=== PATIENT | female | born 1955 | race Caucasian/White ===

== ENCOUNTER → 2021-11-28 10:36 | Outpatient (CLI) | payer MEDICARE, SELFPAY ==
[2021-11-28 12:54] LABS: Anion Gap 9.9 mEq/L (5-15); Blood Urea Nitrogen 18 mg/dl (7-17); Calcium 9.2 mg/dl (8.4-10.2); Carbon Dioxide 26 mmol/L (22.0-30.0); Chloride 106 mmol/L (98-107); Estimated Glomerular Filt Rate 84 ml/min (>60); GFR (African American) 101 ML/MIN (>60); Glucose 88 mg/dl (74-100); Potassium 3.9 mmoL/L (3.5-5.1); Sodium 138 mmol/L (136-145)
[2021-11-28 13:04] LABS: NT Pro Brain Natriuretic Pep. 245 pg/mL (0-125)
== END ==
PROVIDERS: PCP Pediatrics; Visit Provider Internal Medicine Cardiovascular Disease
DX: I10 Essential (primary) hypertension (principal); R06.83 Snoring; R20.0 Anesthesia of skin; R20.2 Paresthesia of skin; R40.0 Somnolence; R55 Syncope and collapse; R63.5 Abnormal weight gain; R94.31 Abnormal electrocardiogram [ECG] [EKG]; R06.09 Other forms of dyspnea
CPT/HCPCS: 36415; 80048; 83880

== ENCOUNTER → 2021-12-05 08:14 | Outpatient (CLI) | payer SELFPAY ==
--- NOTE | 2021-12-05 08:15 | CT_ITS ---
FINAL REPORT CLINICAL HISTORY: eval for cad. family hx heart disease, arm numbness FINDINGS: CT CORONARY CALCIUM SCORE W/O TECHNIQUE: Thin-section axial images were obtained through the heart and coronary arteries per CT coronary calcium score protocol. This study was performed with techniques to keep radiation doses as low as reasonably achievable (ALARA). Individualized dose reduction techniques using automated exposure control or adjustment of mA and/or kV according to the patient's size were employed. FINDINGS: On the axial images, there is calcification within the right and left coronary arteries. This gives a coronary artery calcium score of 390.01 based on the Agatston scale. This coronary artery calcium score places the patient within the 85th percentile based on age and gender. The heart size is normal. There is no pleural or pericardial effusion. Limited evaluation of the lungs reveal a 7 mm nodule in the right middle lobe. There is an 8 mm nodule in the medial right lower lobe. There is mild scarring. IMPRESSION: Calcium score of 390.01 placing the patient in the 85th percentile. Right lung nodules as described. Recommend follow-up chest CT in 3 months. Reviewed, Interpreted and Dictated by Fidel Doty III, MD Transcribed by Barrett Welch Authenticated and [facility]
== END ==
PROVIDERS: PCP Pediatrics; Visit Provider Internal Medicine Cardiovascular Disease
DX: R55 Syncope and collapse (principal); R94.31 Abnormal electrocardiogram [ECG] [EKG]; I10 Essential (primary) hypertension; R20.0 Anesthesia of skin; R20.2 Paresthesia of skin; R06.83 Snoring; R40.0 Somnolence; R63.5 Abnormal weight gain
CPT/HCPCS: 75571

== ENCOUNTER → 2021-12-05 08:35 | Outpatient (CLI) | payer MEDICARE, SELFPAY ==
--- NOTE | 2021-12-05 08:36 | CA_ITS ---
FINAL REPORT TECHNIQUE: Color Doppler, duplex Doppler and muñoz scale sonography of the bilateral neck arterial vasculature was performed. Velocities were measured in the carotid arteries. Stenosis evaluation based on the validated velocity criteria. CLINICAL HISTORY: BRUIT,HTN,HLD FINDINGS: The peak systolic velocity of the right common carotid artery is 66 cm/s. The peak systolic velocity of the right internal carotid artery is 198 cm/s and end diastolic velocity 48 cm/s. The ICA/CCA ratio is 3.25. A small amount of plaque is present. The right external carotid artery is patent. The right vertebral artery is patent with antegrade flow. The peak systolic velocity of the left common carotid artery is 138 cm/s. The peak systolic velocity of the left internal carotid artery is 89 cm/s and end diastolic velocity 31 cm/s. The ICA/CCA ratio is 1.2. A small amount of plaque is present. The left external carotid artery is patent.The left vertebral artery is patent with antegrade flow. IMPRESSION: Based on velocities there is 50-69% right carotid stenosis. CTA or MRA could further evaluate. Less than 50% left carotid stenosis. Bilateral patent vertebral arteries with antegrade flow. Reviewed, Interpreted and Dictated by Fidel Doty III, MD Transcribed by Barrett Welch Authenticated and [facility]
== END ==
PROVIDERS: PCP Pediatrics; Visit Provider Internal Medicine Cardiovascular Disease
DX: I10 Essential (primary) hypertension (principal); R06.83 Snoring; R09.89 Other specified symptoms and signs involving the circulatory and respiratory systems; R20.0 Anesthesia of skin; R20.2 Paresthesia of skin; R40.0 Somnolence; R55 Syncope and collapse; R63.5 Abnormal weight gain; R94.31 Abnormal electrocardiogram [ECG] [EKG]
CPT/HCPCS: 93880

== ENCOUNTER → 2021-12-15 10:39 | Outpatient (CLI) | payer MEDICARE, SELFPAY | PROVIDERS: PCP Pediatrics; Visit Provider Internal Medicine Cardiovascular Disease | DX: G47.33 Obstructive sleep apnea (adult) (pediatric) (principal); R06.83 Snoring; G47.10 Hypersomnia, unspecified | CPT/HCPCS: G0399 ==

== ENCOUNTER → 2022-01-02 11:20 | Outpatient (CLI) | payer MEDICARE, SELFPAY ==
[2022-01-02 12:47] LABS: Basophils # 0.2 K/mm3 (0-0.2); Basophils % 1.3 % (0.1-2.0); Eosinophils % 0.1 % (0.1-12.0); Hematocrit 44.8 % (37.0-47.0); Hemoglobin 14.2 g/dL (12.2-16.2); Lymphocytes % 8.6 % (10-50); Mean Corpuscular HGB Conc 31.7 g/dL (31.8-35.4); Mean Corpuscular Volume 97.8 fl (81-99); Mean Platelet Volume 13.2 fl (7.4-10.4); Monocytes # 0.3 K/mm3 (0.1-1.0); Monocytes % 2.9 % (1.7-9.3); Neutrophils # 10.1 K/mm3 (1.8-7.8); Neutrophils % 87.1 % (37.0-80.0); Platelet Count 323 K/mm3 (142-424); Red Blood Count 4.58 M/mm3 (4.20-5.40); White Blood Count 11.5 K/mm3 (4.8-10.8)
[2022-01-02 12:52] LABS: MANUAL DIFFERENTIAL MANUAL DIFFERENTIAL (MANUAL DIFF)
[2022-01-02 13:26] LABS: Anion Gap 15.7 mEq/L (5-15); Blood Urea Nitrogen 20 mg/dl (7-17); Calcium 9.4 mg/dl (8.4-10.2); Carbon Dioxide 28 mmol/L (22.0-30.0); Chloride 101 mmol/L (98-107); Estimated Glomerular Filt Rate 84 ml/min (>60); GFR (African American) 101 ML/MIN (>60); Glucose 94 mg/dl (74-100); Potassium 4.7 mmoL/L (3.5-5.1); Sodium 140 mmol/L (136-145)
[2022-01-02 13:58] LABS: Lymphocytes % 10 % (10-50); Monocytes % 4 % (2-9); Neutrophils % 85 % (42-76); Platelet Estimate Normal; RBC Morphology Normal; Total Cells Counted 100
== END ==
PROVIDERS: PCP Pediatrics; Visit Provider Internal Medicine Cardiovascular Disease
DX: I10 Essential (primary) hypertension (principal); R06.00 Dyspnea, unspecified; R09.89 Other specified symptoms and signs involving the circulatory and respiratory systems; R55 Syncope and collapse; R94.31 Abnormal electrocardiogram [ECG] [EKG]
CPT/HCPCS: 36415; 80048; 85007; 85025; 93225

== ENCOUNTER 2022-01-09 08:39 | Day surgery (SDC) | payer MEDICARE, MEDICAID, SELFPAY ==
[2022-01-09] VITALS (13 sets, daily range): BP systolic 127–164; BP diastolic 69–83; PULSE 51–63; RESP 16–20; O2SAT 93–100; BMI 29.1
--- NOTE | 2022-01-09 | IR_ITS ---
APPROVED REPORT Patient Location: Outpatient PROCEDURES Left heart catheterization Left ventriculogram Selective coronary angiogram INDICATION High calcium score, Syncope, Informed consent was obtained prior to the procedure. COMPLICATIONS None Estimated Blood Loss: Less than 10 mls TECHNIQUE One percent lidocaine used to anesthetize the right anterior aspect of the wrist. The right radial artery was accessed via the Seldinger technique. A 6 Lebanese sheath was placed in the right radial artery. 2.5 mg of verapamil, 800 mcg of nitroglycerin, 1mg Lidocaine and 5000 U Heparin were given through the arterial sheath. The papa catheter was also used to perform left heart catheterization, left ventriculogram and selective coronary angiogram. At the end of the procedure the sheath was removed good hemostasis was achieved using Traclet band, patient was transferred to the postop holding area in stable condition. ANGIOGRAPHIC RESULTS The left main artery Normal The left anterior descending artery Has proximal mid vessel mild 10% luminal irregularities The circumflex artery Codominant with mild mid vessel 10% luminal regularities The right coronary artery Codominant with mild proximal and 10 to 20% stenoses in a mid vessel 30 to 40% stenosis The MOYER ventriculogram reveals Normal 65% The left ventricular end-diastolic pressure 15 mmHg IMPRESSION Mild to moderate nonflow limiting coronary disease involving the proximal and mid vessel codominant right coronary Normal ejection fraction Borderline LVEDP PLAN 1. Recommend loop recorder given conduction abnormality on EKG 2. Medical management 3. LDL less than 55 to be achieved with high intensity statin Electronically signed by : Tiago Borrego MD 01/09/2022 13:13:04
== END 2022-01-09 13:34 | disposition home or self-care (01) ==
PROVIDERS: PCP Pediatrics; Visit Provider Internal Medicine
DX: R94.39 Abnormal result of other cardiovascular function study (principal); I25.10 Atherosclerotic heart disease of native coronary artery without angina pectoris; R55 Syncope and collapse; R94.31 Abnormal electrocardiogram [ECG] [EKG]; I10 Essential (primary) hypertension
CPT/HCPCS: 93458; 99152; C1725; C1769; J1644; Q9967

== ENCOUNTER 2022-01-14 07:27 | Day surgery (SDC) | payer MEDICARE, MEDICAID, SELFPAY ==
[2022-01-14 07:33] VITALS: BMI 29.1
[2022-01-14 08:01] VITALS: BP 167/88; PULSE 70; PULSE 74; RESP 16; O2SAT 97
[2022-01-14 08:38] VITALS: BP 156/83; PULSE 67; RESP 18; O2SAT 99
[2022-01-14 08:46] VITALS: BP 167/73; PULSE 66; RESP 18; O2SAT 95
--- NOTE | 2022-01-14 09:36 | P.PCN_ITS ---
[facility] Loop Recorder Date: 01/14/22 Time: 08:30 Procedure Performed:: Implantation of loop recorder Indication:: History of syncope Technique:: Patient was brought to the cardiac Organ Fixer.? After informed consent obtained, 1% lidocaine with epinephrine was used to anesthetize the site along the left anterior aspect of the chest near the sternal border.? Using the preformed scalpel, an incision was made and using the supplied preloaded apparatus, the loop recorder was placed subcutaneously without difficulty.? Following the deployment of the loop recorder interrogation of the device was performed to ensure appropriate voltage was being detected.? Once this was verified, Steri- Strips were placed over the incision and the patient was prepped to discharge home.? Patient tolerated the procedure well with minimal discomfort. Impression:: Successful implantation of loop recorder Serial Number:: [employer] M301 Lux-Dx model Serial #[id number] Plan:: Successful implantation of loop recorder. Routine postop care.
== END 2022-01-14 08:51 | disposition home or self-care (01) ==
LOC: CATHLAB 07:31
PROVIDERS: PCP Pediatrics; Visit Provider Internal Medicine
DX: R55 Syncope and collapse (principal); I25.10 Atherosclerotic heart disease of native coronary artery without angina pectoris; R94.31 Abnormal electrocardiogram [ECG] [EKG]; R94.39 Abnormal result of other cardiovascular function study; I10 Essential (primary) hypertension
CPT/HCPCS: 33285

== ENCOUNTER 2022-03-17 12:08 | Emergency (ER) | payer MEDICARE, MEDICAID, SELFPAY ==
[2022-03-17] VITALS (7 sets, daily range): BP systolic 131–180; BP diastolic 68–84; PULSE 61–71; RESP 14–21; TEMP 36.8; O2SAT 96–99; BMI 28.1
--- NOTE | 2022-03-17 12:22 | ECG_ITS ---
APPROVED REPORT Exam: Resting ECG HR:60 bpm ECG Measurements Heart Rate 60 AXES FL 174 P 74 QRSd 133 QRS 70 QT 431 T 81 QTc 431 Conclusion SINUS RHYTHM LEFT BUNDLE BRANCH BLOCK [120+ ms QRS DURATION, 80+ ms Q/S IN V1/V2, 85+ ms R IN I/aVL/V5/V6] ABNORMAL ECG UNCONFIRMED REPORT Electronically signed by : Ciaran Sanchez MD 03/17/2022 20:08:54
[2022-03-17 12:24] LABS: POC Glucose,Bedside 98 (70-110)
--- NOTE | 2022-03-17 12:27 | HMH.EDGENADL ---
Discharge Plan Disposition Patient Disposition: Home, Self-Care Condition: Good Chief Complaint: Extremity Problem,Nontraumatic Prescriptions Prescriptions: No Action atorvastatin 40 mg tablet 40 mg PO HS levothyroxine 75 mcg tablet 75 mcg PO DAILY Label Comments: TAKE 1 TABLET BY MOUTH DAILY. metoprolol succinate 25 mg tablet extended release 24 hr 25 mg PO DAILY Label Comments: TAKE 1 TABLET BY MOUTH ONCE DAILY. aspirin 81 mg capsule 81 mg PO DAILY losartan 100 mg tablet 100 mg PO DAILY Qty: 90 3RF cholecalciferol (vitamin D3) 25 mcg (1,000 unit) capsule 25 mcg PO DAILY fluoxetine 20 mg capsule 20 mg PO DAILY Label Comments: TAKE 1 CAPSULE BY MOUTH DAILY. Referrals Follow up/Referrals: Diego Gutierrez [Primary Care Provider] - See instructions Activity Restrictions/Add. Instructions Additional Instructions/Restrictions: Follow-up with primary care provider for further care. Clinical Impressions Clinical Impression: Arm paresthesia, right Instructions Patient Instructions: DI for Numbness/Tingling Discharge ED Provider: Timothy Joy General Adult HPI General Chief complaint: Extremity Problem,Nontraumatic Stated complaint: RT arm numbness/tingle physican referral Time Seen by Provider: 03/17/22 13:01 History of Present Illness HPI narrative: Patient complains of intermittent episodes of right arm tingling. States that she had 3 episodes this morning, each lasting less than 5 minutes. They all occurred within about a 1 to 2-hour span. She had 1 episode of vomiting. No chest pain, shortness of breath, headache, visual disturbance, difficulty speaking, or weakness of her arm. No other neurologic symptoms. Currently asymptomatic. She called Dr. Arias, her law office receptionist, and was advised to come to the emergency department. She has had these episodes for over a year. She gets them at least once a week. She always gets tingling from the right side of her neck all the way down her right arm. Sometimes she will get a headache, sometimes she will vomit. She never gets any other associated symptoms. Symptoms always last about 5 minutes and then resolve. No exacerbating or alleviating factors. She says she can always go back to doing what she was doing before the episode started. The most she has ever had and 1 day was 5. She says she has been admitted to [facility] twice because of these episodes with negative work-up. She does not remember all of the tests that she has had. She has had a heart cath done here. She has also seen her primary care provider because of the symptoms, but says she has not had any other work-up done by him. Because she had 3 episodes in 1 day, which is unusual, she called Dr. Arias today. Related Data Home Medications Medication Instructions Recorded Confirmed aspirin 81 mg capsule 81 mg PO DAILY 11/28/21 01/22/22 atorvastatin 40 mg tablet 40 mg PO HS 11/28/21 01/22/22 levothyroxine 75 mcg tablet 75 mcg PO DAILY 11/28/21 01/22/22 metoprolol succinate 25 mg 25 mg PO DAILY 11/28/21 01/22/22 tablet,extended release 24 hr cholecalciferol (vitamin D3) 25 25 mcg PO DAILY 12/25/21 01/22/22 mcg (1,000 unit) capsule fluoxetine 20 mg capsule 20 mg PO DAILY 01/22/22 01/22/22 Previous Rx's Medication Instructions Recorded losartan 100 mg tablet 100 mg PO DAILY #90 tabs 11/28/21 Allergies Allergy/AdvReac Type Severity Reaction Status Date / Time No Known Allergies Allergy Verified 01/22/22 09:37 [facility] Disclaimer: The information contained in this section may have been updated after the patient was seen, as this information can be updated by other users. Medical History (Updated 03/17/22 @ 15:25 by Timothy Joy MD) Abnormal electrocardiogram [ECG] [EKG] Coronary artery disease HTN (hypertension) Hyperthyroidism LBBB (left bundle branch block) Right arm numbness S
--- NOTE | 2022-03-17 13:01 | PC.NURSE ---
DR. MCGREGOR AT BEDSIDE
--- NOTE | 2022-03-17 13:17 | CT_ITS ---
FINAL REPORT TECHNIQUE: Thin section axial CT with IV contrast supplemented with multiplanar reconstruction under CT angiogram protocol. This study was performed with techniques to keep radiation doses as low as reasonably achievable (ALARA). Individualized dose reduction techniques using automated exposure control or adjustment of mA and/or kV according to the patient''s size were employed. NASCET criteria was utilized during interpretation. CLINICAL HISTORY: episodic R arm numbness FINDINGS: Aortic arch: Arch shows no significant narrowing. Great vessel origins are widely patent. Right carotid: No significant stenosis is seen of the cervical common or internal carotid artery. Left carotid: No significant stenosis is seen of the cervical common or internal carotid artery. Vertebral: Left vertebral artery is dominant. No significant stenosis is present. There is mild scarring in the lung apices. IMPRESSION: No significant stenosis. Reviewed, Interpreted and Dictated by Fidel Doty III, MD Transcribed by Barrett Welch Authenticated and [facility]
--- NOTE | 2022-03-17 13:17 | CT_ITS ---
FINAL REPORT CLINICAL HISTORY: episodic R arm numbness FINDINGS: Axial images of the head were obtained without contrast. Coronal reformatted images were also obtained.This study was performed with techniques to keep radiation doses as low as reasonably achievable (ALARA). Individualized dose reduction techniques using automated exposure control or adjustment of mA and/or kV according to the patient's size were employed. There is no evidence of intracranial hemorrhage or mass. The ventricular size is within normal limits. There is no evidence of shift of the midline structures. No abnormal extra axial fluid collection is identified. No skull abnormality is seen on the bone window images. IMPRESSION: No acute intracranial abnormality. Reviewed, Interpreted and Dictated by Fidel Doty III, MD Transcribed by Barrett Welch Authenticated and [facility]
--- NOTE | 2022-03-17 13:17 | CT_ITS ---
FINAL REPORT TECHNIQUE: Thin section axial CT with IV contrast supplemented with multiplanar reconstruction under CT angiogram protocol. 3-D reconstructions were performed. This study was performed with techniques to keep radiation doses as low as reasonably achievable (ALARA). Individualized dose reduction techniques using automated exposure control or adjustment of mA and/or kV according to the patient''s size were employed. CLINICAL HISTORY: episodic R arm numbness FINDINGS: The distal vertebral, basilar and distal internal carotid arteries have an unremarkable appearance. No aneurysm is seen. Major intracranial vessels are patent without significant stenosis. IMPRESSION: No aneurysm or significant stenosis. Reviewed, Interpreted and Dictated by Fidel Doty III, MD Transcribed by Barrett Welch Authenticated and [facility]
[2022-03-17 13:22] LABS: Basophils # 0.1 K/mm3 (0-0.2); Basophils % 0.8 % (0.1-2.0); Eosinophils # 0.2 K/mm3 (0.0-0.4); Eosinophils % 2.8 % (0.1-12.0); Hematocrit 43.8 % (37.0-47.0); Hemoglobin 14.3 g/dL (12.2-16.2); Lymphocytes # 1.9 K/mm3 (0.7-4.5); Lymphocytes % 28.1 % (10-50); Mean Corpuscular HGB Conc 32.7 g/dL (31.8-35.4); Mean Corpuscular Hemoglobin 32.1 pg (27.0-31.2); Mean Corpuscular Volume 98.2 fl (81-99); Mean Platelet Volume 8.8 fl (7.4-10.4); Monocytes # 0.3 K/mm3 (0.1-1.0); Monocytes % 3.8 % (1.7-9.3); Neutrophils # 4.3 K/mm3 (1.8-7.8); Neutrophils % 64.5 % (37.0-80.0); Platelet Count 282 K/mm3 (142-424); Red Blood Count 4.46 M/mm3 (4.20-5.40); Red Cell Distribution Width 13.1 % (11.5-17.5); White Blood Count 6.6 K/mm3 (4.8-10.8)
[2022-03-17 13:23] LABS: Chloride 104 mmol/L (98-107); Sodium 140 mmol/L (136-145)
[2022-03-17 13:26] LABS: Blood Urea Nitrogen 12 mg/dl (7-17); Creatinine Clearance Estimated 71 mL/min (50-200); Estimated Glomerular Filt Rate 72 ml/min (>60); GFR (African American) 87 ML/MIN (>60)
[2022-03-17 13:27] LABS: Calcium 10.6 mg/dl (8.4-10.2); Carbon Dioxide 28 mmol/L (22.0-30.0); Glucose 105 mg/dl (74-100)
[2022-03-17 13:40] LABS: Troponin I < 0.01 ng/ml (0.00-0.034)
--- NOTE | 2022-03-17 14:22 | XR_ITS ---
FINAL REPORT CLINICAL HISTORY: R arm numbness FINDINGS: SINGLE-VIEW CHEST The heart size is normal. The mediastinum is normal. The lungs are clear. There is no pneumothorax. IMPRESSION: No acute cardiopulmonary process. Reviewed, Interpreted and Dictated by Fidel Doty III, MD Transcribed by Rosanna Simpson Authenticated and [facility]
--- NOTE | 2022-03-17 14:27 | PC.NURSE ---
Cardiology consult has been called for patient
--- NOTE | 2022-03-17 14:35 | PC.NURSE ---
rounded on patient.
--- NOTE | 2022-03-17 14:45 | PC.NURSE ---
sunni fountainn at BS
--- NOTE | 2022-03-17 14:57 | EXP.CARD.CON ---
History of Present Illness History of Present Illness Consult date: 03/17/22 Requesting physician: Tmiothy Joy Chief complaint: right arm numbness History of present illness: This is a 66-year-old white female who presented to the emergency department with complaints of right arm numbness. The patient states that she has been having the right arm numbness for approximately a year or 2. She states that she has been seen at [facility] multiple times for the right arm numbness and had multiple cardiac work-ups with no known cause of the right arm numbness. She states that the right arm numbness happened 3 times today and she called Dr. Arias's office and they recommended she go to the emergency department. The patient states that the right arm numbness is intermittent. It occurs about once a week. She states today that it occurred 3 times which is unusual for her. It is associated with nausea. She states sometimes it is associated with a headache but not today. The patient symptoms resolved prior to her coming to the emergency department. She denies any chest pain or pressure. She denies any shortness of breath or edema. She denies any fever, chills, vomiting, diarrhea, PND or orthopnea. She states that when the numbness starts it first starts in her neck and then radiates all the way down to her fingertips on the right side. The patient has had a cardiac work-up here and underwent left cardiac catheterization approximately 3 months ago which showed some mild to moderate nonocclusive coronary disease. She does have a loop recorder in place as well which is shown note for events. [facility] Disclaimer: The information contained in this section may have been updated after the patient was seen, as this information can be updated by other users. Medical History (Updated 03/17/22 @ 15:03 by Luci Rosas APRN) Abnormal electrocardiogram [ECG] [EKG] Coronary artery disease HTN (hypertension) Hyperthyroidism LBBB (left bundle branch block) Right arm numbness Stenosis of carotid artery Surgical History (Updated 01/22/22 @ 10:05 by Marion Parsons RN) History of appendectomy History of cholecystectomy History of loop recorder Family History Father Coronary artery disease Heart attack Brother Cancer Mother Stroke Social History (Reviewed 01/22/22 @ 09:37 by Christine Smith Smoking Status: Never smoker alcohol intake: never substance use type: marijuana current occupational status: retired Travel in the last 8 weeks: None household members: other housing: apartment marital status: Review of Systems Review of Systems Review of systems:: pertinent systems reviewed and negative unless documented below Constitutional Constitutional: Reports system reviewed and no additional complaints, except as documented, Reports headache(s) and Denies weakness Eyes Eyes: Reports system reviewed and no additional complaints, except as documented ENT Ears, Nose, Mouth, and Throat: Reports system reviewed and no additional complaints, except as documented and Reports headache(s) *Cardiovascular Cardiovascular: Reports system reviewed and no additional complaints, except as documented *Respiratory Respiratory: Reports system reviewed and no additional complaints, except as documented *Gastrointestinal Gastrointestinal: Reports system reviewed and no additional complaints, except as documented and Reports nausea *Genitourinary Genitourinary: Reports system reviewed and no additional complaints, except as documented *Musculoskeletal Musculoskeletal: Reports system reviewed and no additional complaints, except as documented, Reports numbness (Right upper extremity) and Reports tingling Integumentary/Breasts Skin/Breast: Reports system reviewed and no additional complaints, except as documented *Neurologic Neurologic: Reports system reviewed and no add
== END 2022-03-17 15:40 | disposition home or self-care (01) ==
PROVIDERS: Emergency Provider Emergency Medicine; PCP Pediatrics
DX: R55 Syncope and collapse (principal); R20.2 Paresthesia of skin; R94.31 Abnormal electrocardiogram [ECG] [EKG]; R11.2 Nausea with vomiting, unspecified; R51.9 Headache, unspecified; I10 Essential (primary) hypertension; I25.10 Atherosclerotic heart disease of native coronary artery without angina pectoris; I65.29 Occlusion and stenosis of unspecified carotid artery; I44.7 Left bundle-branch block, unspecified; Z98.890 Other specified postprocedural states; Z82.49 Family history of ischemic heart disease and other diseases of the circulatory system; Z80.9 Family history of malignant neoplasm, unspecified
CPT/HCPCS: 70450; 70496; 70498; 71045; 80048; 82962; 84484; 85025; 93005; 99285; Q9967

== ENCOUNTER → 2022-03-25 14:25 | Outpatient (CLI) | payer MEDICARE, MEDICAID, SELFPAY ==
--- NOTE | 2022-03-25 14:25 | MR_ITS ---
FINAL REPORT TECHNIQUE: Multiplanar MR without gadolinium enhancement CLINICAL HISTORY: right arm pain and numbness FINDINGS: Limited images of the posterior fossa are unremarkable. Alignment is normal. Cervical spinal cord shows normal signal and contour. C2-3: Unremarkable. C3-4: A minimal annular disc bulge is present. C4-5: A mild annular disc bulge is present. C5-6: A moderate annular disc bulge is present with mild facet arthropathy and borderline central canal stenosis. C6-7: A moderate annular disc bulge is present with mild facet arthropathy and borderline central canal stenosis. C7-T1: Unremarkable. IMPRESSION: Moderate degenerative disc disease with associated spondylosis at C5-6 and C6-7. Reviewed, Interpreted and Dictated by Jordan Maynard MD Transcribed by Liat Sims Authenticated and [facility]
--- NOTE | 2022-03-25 14:25 | MR_ITS ---
FINAL REPORT TECHNIQUE: Multiplanar MR without gadolinium enhancement CLINICAL HISTORY: right arm pain FINDINGS: There is motion artifact which decreases sensitivity of the exam. Limited images of the cervical cord show no cord abnormality. There is moderate lower cervical degenerative disc disease. No mass or fluid collection is seen along the course of the right brachial plexus. Right thoracic inlet region is unremarkable. There is no obvious abnormal signal change within the right neck and axilla. IMPRESSION: No obvious mass along the course of the right brachial plexus. Moderate lower cervical degenerative changes. Reviewed, Interpreted and Dictated by Jordan Maynard MD Transcribed by Liat Sims Authenticated and [facility]
== END ==
PROVIDERS: PCP Pediatrics; Visit Provider Internal Medicine
DX: R20.0 Anesthesia of skin (principal); R20.2 Paresthesia of skin; M54.2 Cervicalgia; M54.50 Low back pain, unspecified
CPT/HCPCS: 72141; 73218; 76376

== ENCOUNTER → 2022-04-08 09:38 | Outpatient (CLI) | payer MEDICARE, MEDICAID, SELFPAY | PROVIDERS: PCP Pediatrics; Visit Provider Nurse Practitioner Family | DX: G93.40 Encephalopathy, unspecified (principal); G47.33 Obstructive sleep apnea (adult) (pediatric); F14.91 Cocaine use, unspecified, in remission; F12.90 Cannabis use, unspecified, uncomplicated; R41.3 Other amnesia; R20.0 Anesthesia of skin; R20.2 Paresthesia of skin | CPT/HCPCS: 95816; 95819 ==

== ENCOUNTER → 2022-04-10 11:04 | Outpatient (CLI) | payer MEDICARE, MEDICAID, SELFPAY ==
[2022-04-10 12:35] LABS: C-Reactive Protein 0.7 mg/L (0-4)
[2022-04-10 12:48] LABS: Thyroid Stimulating Hormone 1.39 uIU/mL (0.465-4.68)
[2022-04-10 13:24] LABS: Vitamin B12 340 pg/mL (239-931)
[2022-04-10 13:25] LABS: Erythrocyte Sedimentation Rate 74 mm/hr (0-30)
[2022-04-10 13:27] LABS: Folate 5.19 ng/mL
[2022-04-11 17:03] LABS: Rapid Plasma Reagin Ab Titer Non Reactive (NonRea<1:1)
[2022-04-16 03:00] LABS: Antinuclear Antibodies (ANA) NEGATIVE
== END ==
PROVIDERS: PCP Pediatrics; Visit Provider Nurse Practitioner Family
DX: F12.90 Cannabis use, unspecified, uncomplicated (principal); F14.91 Cocaine use, unspecified, in remission; G47.33 Obstructive sleep apnea (adult) (pediatric); G93.40 Encephalopathy, unspecified; R20.0 Anesthesia of skin; R20.2 Paresthesia of skin; R41.3 Other amnesia; I10 Essential (primary) hypertension
CPT/HCPCS: 36415; 82607; 82746; 84443; 85651; 86038; 86140; 86225; 86235; 86593

== ENCOUNTER → 2022-04-11 07:58 | Outpatient (CLI) | payer MEDICARE, MEDICAID, SELFPAY ==
--- NOTE | 2022-04-11 07:58 | MR_ITS ---
PROCEDURE INFORMATION: Exam: MR Head Without and With Contrast Exam date and time: 04/11/2022 8:04 AM Age: 66 years old Clinical indication: Pain; Other: Encephalopathy TECHNIQUE: Imaging protocol: Magnetic resonance imaging of the head without and with contrast. Contrast material: PROHANCE; Contrast volume: 16 ml; Contrast route: IV; COMPARISON: CT HEAD/BRAIN WO CON 03/17/2022 1:41 PM FINDINGS: Brain: No acute intraparenchymal hemorrhage, territorial infarct or mass lesion. There are scattered T2 hyperintensities in the periventricular and subcortical white matter. The appearance is nonspecific, but most likely represents chronic small vessel disease in a person of this age. No abnormal parenchymal or meningeal enhancement. Cerebral ventricles: The ventricles, sulci and cisterns are normal in size and configuration. No hydrocephalus or midline structure shift Pituitary gland and sella: Orbits, sellar/parasellar structures and cervicomedullary junction are unremarkable. Bones/joints: Unremarkable. Paranasal sinuses: Normal as visualized. No acute sinusitis. Mastoid air cells: Normal as visualized. No mastoid effusion. Orbital cavities: Unremarkable. Vasculature: Flow voids of the major vascular structures are intact. Soft tissues: Unremarkable. IMPRESSION: No acute intraparenchymal hemorrhage, territorial infarct or mass lesion
== END ==
PROVIDERS: PCP Pediatrics; Visit Provider Nurse Practitioner Family
DX: F14.91 Cocaine use, unspecified, in remission (principal); G47.33 Obstructive sleep apnea (adult) (pediatric); G93.40 Encephalopathy, unspecified; R20.0 Anesthesia of skin; R20.2 Paresthesia of skin; R41.3 Other amnesia
CPT/HCPCS: 70553; A9576

== ENCOUNTER → 2022-08-06 08:05 | Outpatient (CLI) | payer MEDICARE, MEDICAID, SELFPAY ==
--- NOTE | 2022-08-06 08:11 | XR_ITS ---
FINAL REPORT CLINICAL HISTORY: left knee pain COMPARISON: none FINDINGS: Three views of the left knee reveal no evidence of fracture or dislocation. [id number] degenerative change. There is moderate lateral compartment joint space narrowing. There is mild lateral subluxation of the tibia in relation to the distal femur. A small joint effusion is present. No localized soft tissue abnormality is seen. IMPRESSION: Moderate degenerative change with moderate lateral compartment joint space narrowing. Small joint effusion. Reviewed, Interpreted and Dictated by Fidel Doty III, MD Transcribed by Kelly Bolivar Authenticated and [facility]
== END ==
PROVIDERS: PCP Pediatrics; Visit Provider Orthopaedic Surgery
DX: M25.562 Pain in left knee (principal)
CPT/HCPCS: 73562

== ENCOUNTER → 2022-08-27 12:54 | Outpatient (POV) | payer MEDICARE, MEDICAID, SELFPAY ==
--- NOTE | 2022-08-27 13:09 | EXP.PAIN.OV ---
HPI Data of Consult Patient: new to practice Consult date: 08/27/22 Requesting Physician: Brenda Isidro APRN Consult Narrative Reason for consult: Left knee pain History of present illness: Ms. Keys is a 66 year old female who presents today as a new patient. She is a referral from [facility]. Today she rates her pain an 8 out of 10. Patient states her pain is in left knee and describes it as 0333 sharp achy sensation that is worse with increased activity. She does state that she believes it is related to a fall she had in her bedroom 3 to 4 years ago where she landed on both her knees. Patient states it has progressively worsened over time. She states she did go to [facility] in the past and guidance gel injections that did not provide any additional improvement as well as intra-articular injections. She states these injections initially did provide 7 to 8 months worth of relief however as time progressed the injections became less and less effective. Patient has tried [id number] medications such as ibuprofen that has provided improvement along with ice for temporary relief. Patient denies any topical use. She has had physical therapy in the past that did provide additional help. She does state that her pain is not bad while she is sitting however prolonged activity up on her feet or walking causes significant pain and disability. She states the pain does interfere with her ability to perform activities of daily living such as cooking and cleaning. She does state that the left knee is the worst knee and that she will occasionally have right knee pain however it is not as frequent. She also states she typically has edema in her left knee. Patient is not on any blood thinners. Her Adam is [id number]. Its been reviewed and appropriate. CC: Brenda Isidro APRN [facility] Disclaimer: The information contained in this section may have been updated after the patient was seen, as this information can be updated by other users. Medical History Abnormal electrocardiogram [ECG] [EKG] Coronary artery disease HTN (hypertension) Hyperthyroidism LBBB (left bundle branch block) Right arm numbness Stenosis of carotid artery Surgical History History of appendectomy History of cholecystectomy History of loop recorder syncope-implant DEC 2021 Family History Father Coronary artery disease Heart attack Brother Cancer Mother Stroke Social History Smoking Status: Never smoker alcohol intake: never substance use type: marijuana current occupational status: retired Travel in the last 8 weeks: None household members: other housing: apartment marital status: Review of Systems Review of Systems Review of systems:: pertinent systems reviewed and negative unless documented below Review of systems (narrative): Review of Systems: General: No recent weight changes, no fever, no sleep disturbances Respiratory: No cough, no shortness of air, no recurring pulmonary infections Cardiovascular/peripheral vascular: No chest pain, no palpitations, no edema, no shortness of breath Gastrointestinal: No new onset incontinence, normal bowel movements reported Genitourinary: No new onset incontinence Musculoskeletal: Left knee pain Psychiatric: [Normal mood/affect] Neurological: [Denies weakness in extremities], [denies balance issues] Meds Home Medications and Allergies Home Medications Medication Instructions Recorded Confirmed Type aspirin 81 mg capsule 81 mg PO DAILY 11/28/21 08/10/22 History atorvastatin 40 mg tablet 40 mg PO HS 11/28/21 08/10/22 History levothyroxine 75 mcg tablet 75 mcg PO DAILY 11/28/21 08/10/22 History losartan 100 mg tablet 100 mg PO DAILY #90 tabs 0
[2022-08-27 14:04] VITALS: BP 105/59; PULSE 69; RESP 18; O2SAT 97; BMI 27.1
== END ==
PROVIDERS: Visit Provider Nurse Practitioner Family
DX: M17.12 Unilateral primary osteoarthritis, left knee (principal); M25.562 Pain in left knee
CPT/HCPCS: 99202; G0463

== ENCOUNTER 2022-09-08 08:40 | Day surgery (SDC) | payer MEDICARE, MEDICAID, SELFPAY ==
[2022-09-08 08:46] VITALS: BP 152/70; PULSE 64; RESP 16; TEMP 36.4; O2SAT 97; BMI 26.6
[2022-09-08 08:57] VITALS: BP 180/68; PULSE 59; RESP 18; O2SAT 98
[2022-09-08 09:02] VITALS: BP 162/77; PULSE 61; RESP 18; O2SAT 97
--- NOTE | 2022-09-08 09:03 | EXP.PAIN.PRO ---
Procedure Date: 09/08/22 Time: 08:50 Anesthesiologist:: Tomer Dhaliwal CRNA Complications:: None Pre-procedure Diagnosis:: Osteoarthritis left knee. Chronic pain left knee. Post-procedure Diagnosis:: Same. Indications for Procedure:: Patient is a very pleasant 66-year-old female comes our clinic today for a left genicular nerve block. Patient complains of severe left knee pain transitioning from sitting to standing. Patient complains of some degree of pain with ambulation. Also, with standing for any length of time. Patient rates her pain 7/10. Procedure Details:: Left knee genicular block Informed consent was obtained and the risk and benefits of the procedure was explained to the patient. The patient was taken to the procedure room. The left knee was prepped using ChloraPrep. I placed 22-gauge needles into the area of the left superior medial genicular nerve, left superior lateral genicular nerve and left inferior medial genicular nerve. Needle placement was confirmed in AP and lateral views with dye. We then injected bupivacaine 0.25% 3 mL's and Depo-Medrol 25 mg into each area of the left superior medial genicular nerve, left superior lateral genicular nerve and left inferior medial genicular nerve. Patient tolerated the procedure well with no complications. Plan and Disposition:: We will follow-up with her in 2 weeks. Will reevaluate symptoms at that time. Plan and Disposition:: Patient was discharged without incident.
== END 2022-09-08 09:02 | disposition home or self-care (01) ==
PROVIDERS: PCP Nurse Practitioner Family; Visit Provider Nurse Anesthetist, Certified Registered
DX: M17.12 Unilateral primary osteoarthritis, left knee (principal); M25.562 Pain in left knee; G89.29 Other chronic pain
CPT/HCPCS: 64454; J1040

== ENCOUNTER → 2022-09-28 10:33 | Outpatient (POV) | payer MEDICARE, MEDICAID, SELFPAY ==
--- NOTE | 2022-09-28 10:39 | A.OFFVIS_ITS ---
[facility] Pain Management SOAP Note Subjective:: Patient is a pleasant 66-year-old female who presents today for follow-up of left genicular nerve block on 09/08/2022. We are currently treating the patient for left knee pain. Today she rates her pain a 0 out of 10. She states she has had 100% improvement following this injection and feels like it is still continuing to provide additional relief. Patient states she has been able to move around easier with decreased pain symptoms and feels like she has more functionality. She states she was able to walk the [email or web address] recently and is very pleased with her response to the injection. Patient is not on any scheduled medications. Her Adam is [id number]. Its been reviewed and appropriate. Review of Systems: General: No recent weight changes, no fever, no sleep disturbances Respiratory: No cough, no shortness of air, no recurring pulmonary infections Cardiovascular/peripheral vascular: No chest pain, no palpitations, no edema, no shortness of breath Gastrointestinal: No new onset incontinence, normal bowel movements reported Genitourinary: No new onset incontinence Musculoskeletal: Left knee pain Psychiatric: [Normal mood/affect] Neurological: [Denies weakness in extremities], [denies balance issues] Objective:: Physical Exam: General: Alert and oriented x3, no acute distress, pleasant and cooperative Lungs: Respirations even and unlabored, symmetrical chest expansion Eyes: PERRL Musculoskeletal: Flexion and extension of left knee somewhat guarded secondary to pain, [antalgic gait noted] Neurological: Speech clear, no gross sensory deficit Assessment:: Left knee pain Plan:: Patient has had 100% improvement of her left knee pain following her left genicular nerve block and does not require additional injective therapy at this time. Patient will return to clinic in 1 month for reevaluation of symptoms and plan of care. Patient has been instructed to contact the clinic with any concerns before the next appointment. Dr. Bernal has reviewed this note and agrees with this plan of care. This note was dictated using voice recognition software and make contain errors or omissions. [facility] Disclaimer: The information contained in this section may have been updated after the patient was seen, as this information can be updated by other users. Medical History Abnormal electrocardiogram [ECG] [EKG] Coronary artery disease HTN (hypertension) Hyperthyroidism LBBB (left bundle branch block) Right arm numbness Stenosis of carotid artery Surgical History History of appendectomy History of cholecystectomy History of loop recorder syncope-implant DEC 2021 Family History Father Coronary artery disease Heart attack Brother Cancer Mother Stroke Social History Smoking Status: Never smoker alcohol intake: never substance use type: marijuana current occupational status: retired Travel in the last 8 weeks: None household members: other housing: apartment marital status:
[2022-09-28 10:42] VITALS: BP 133/79; PULSE 80; RESP 18; O2SAT 98; BMI 26.6
== END ==
PROVIDERS: PCP Pediatrics; Visit Provider Nurse Practitioner Family
DX: M25.562 Pain in left knee (principal)
CPT/HCPCS: 99212; G0463

== ENCOUNTER → 2022-09-30 08:20 | Outpatient (CLI) | payer MEDICARE, MEDICAID, SELFPAY ==
[2022-09-30 09:35] LABS: Erythrocyte Sedimentation Rate 24 mm/hr (0-30)
== END ==
PROVIDERS: PCP Pediatrics; Visit Provider Nurse Practitioner Family
DX: R70.0 Elevated erythrocyte sedimentation rate (principal)
CPT/HCPCS: 36415; 85651

== ENCOUNTER → 2022-11-12 13:38 | Outpatient (POV) | payer MEDICARE, MEDICAID, SELFPAY ==
--- NOTE | 2022-11-12 13:50 | EXP.PAIN.SOA ---
[facility] Pain Management SOAP Note Subjective:: Patient is a pleasant 66-year-old female who presents today for 1 month follow-up. We are currently treating the patient for left knee pain, left knee osteoarthritis. Today she rates her pain an 0 out of 10. Patient denies any new trauma or injury. She denies any change to location or type of pain she experiences. Patient previously had a genicular nerve block on 09/16/2022 that provided 100% improvement. She states today that it is continued to do extremely well and she is able to get up and down with decreased pain and feels overall more functional. Patient is not on any scheduled medications. Her Adam is appropriate Review of Systems: General: No recent weight changes, no fever, no sleep disturbances Respiratory: No cough, no shortness of air, no recurring pulmonary infections Cardiovascular/peripheral vascular: No chest pain, no palpitations, no edema, no shortness of breath Gastrointestinal: No new onset incontinence, normal bowel movements reported Genitourinary: No new onset incontinence Musculoskeletal: Left knee pain Psychiatric: [Normal mood/affect] Neurological: [Denies weakness in extremities], [denies balance issues] Objective:: Physical Exam: General: Alert and oriented x3, no acute distress, pleasant and cooperative Lungs: Respirations even and unlabored, symmetrical chest expansion Eyes: PERRL Musculoskeletal: Flexion and extension of left knee somewhat guarded secondary to pain, [antalgic gait noted] Neurological: Speech clear, no gross sensory deficit Assessment:: Left knee pain, left knee osteoarthritis Plan:: Patient continues to do well from her left genicular nerve block and does not require any additional injective therapy. Patient will return to clinic in 3 months for reevaluation of symptoms and plan of care. Patient has been instructed to contact the clinic with any concerns before the next appointment. Dr. Bernal has reviewed this note and agrees with this plan of care. This note was dictated using voice recognition software and make contain errors or omissions. [facility] Disclaimer: The information contained in this section may have been updated after the patient was seen, as this information can be updated by other users. Medical History Abnormal electrocardiogram [ECG] [EKG] Coronary artery disease HTN (hypertension) Hyperthyroidism LBBB (left bundle branch block) Right arm numbness Stenosis of carotid artery Surgical History History of appendectomy History of cholecystectomy History of loop recorder syncope-implant DEC 2021 Family History Father Coronary artery disease Heart attack Brother Cancer Mother Stroke Social History Smoking Status: Never smoker alcohol intake: never substance use type: marijuana current occupational status: retired Travel in the last 8 weeks: None household members: other housing: apartment marital status:
[2022-11-12 13:58] VITALS: BP 127/67; PULSE 62; RESP 18; O2SAT 96; BMI 25.5
== END ==
PROVIDERS: Visit Provider Nurse Practitioner Family
DX: M17.12 Unilateral primary osteoarthritis, left knee (principal); M25.562 Pain in left knee
CPT/HCPCS: 99212; G0463

== ENCOUNTER → 2023-01-14 14:45 | Outpatient (POV) | payer MEDICARE, MEDICAID, SELFPAY ==
[2023-01-14 15:18] VITALS: BP 127/83; PULSE 89; RESP 18; O2SAT 96; BMI 27.3
--- NOTE | 2023-01-14 15:20 | EXP.PAIN.SOA ---
[facility] Pain Management SOAP Note Subjective:: Patient is a pleasant 67-year-old female who presents today for follow-up. We are currently treating the patient for chronic left knee pain, left knee osteoarthritis. Today she rates her pain a 9 out of 10. Patient states she has had significant pain in this joint that has been worsening over the last week or so. Patient does describe this as an aching, throbbing sensation that is worse with increased ambulation or activity. She does state the pain interferes with her ability perform activities of daily living such as cooking and cleaning. Patient does state the pain is all within her knee joint and denies any other symptoms down the left leg. Patient did previously have a genicular nerve block back in August that did provide 100% improvement and has lasted this long. She does state that during the time that it was helping it may activities easier to accomplish and she felt overall more functional. She is interested in repeating this injection. She does also state that she has started to experience more pain in her low back that does radiate down her entire right leg as well however the left knee pain is worse. Patient does state that she is unsure whether or not this pain along the right side is related to her knee, hip or back. Her Adam has been reviewed and is appropriate. Review of Systems: General: No recent weight changes, no fever, no sleep disturbances Respiratory: No cough, no shortness of air, no recurring pulmonary infections Cardiovascular/peripheral vascular: No chest pain, no palpitations, no edema, no shortness of breath Gastrointestinal: No new onset incontinence, normal bowel movements reported Genitourinary: No new onset incontinence Musculoskeletal: Left knee pain Psychiatric: [Normal mood/affect] Neurological: [Denies weakness in extremities], [denies balance issues] Objective:: Physical Exam: General: Alert and oriented x3, no acute distress, pleasant and cooperative Lungs: Respirations even and unlabored, symmetrical chest expansion Eyes: PERRL Musculoskeletal: Flexion and extension of left knee somewhat guarded secondary to pain, [antalgic gait noted] Neurological: Speech clear, no gross sensory deficit Assessment:: Chronic left knee pain, left knee osteoarthritis, low back pain, right leg pain Plan:: Patient is experiencing significant pain in her left knee with limited range of motion. I have discussed with the patient that she may benefit from a repeat genicular nerve block. Risk and benefits were discussed with the patient and she would like to proceed forward with this plan of care. Patient is not on any blood thinners. Patient did have her first genicular nerve block with 100% improvement lasting since the end of August up until the last week or so. I have also discussed with the patient in future we may look at possibly doing a right transforaminal epidural for her low back and right leg issues. We will follow-up with this in future visits. Patient will be scheduled for a left genicular nerve block #2. Patient has been instructed to contact the clinic with any concerns before the next appointment. Dr. Bernal has reviewed this note and agrees with this plan of care. This note was dictated using voice recognition software and make contain errors or omissions. [facility] Disclaimer: The information contained in this section may have been updated after the patient was seen, as this information can be updated by other users. Medical History Abnormal electrocardiogram [ECG] [EKG] Coronary artery disease HTN (hypertension) Hyperthyroidism LBBB (left bundle branch block) Right arm numbness Stenosis of carotid artery Surgical History History of appendectomy History of cholecystectomy History of loop recorder syncope-implant DEC 2021 Family History (Reviewed
== END ==
PROVIDERS: PCP Nurse Practitioner Family; Visit Provider Nurse Practitioner Family
DX: M17.12 Unilateral primary osteoarthritis, left knee (principal); M25.562 Pain in left knee; G89.29 Other chronic pain; M54.50 Low back pain, unspecified; M79.604 Pain in right leg
CPT/HCPCS: 99212; G0463

== ENCOUNTER → 2023-03-08 11:11 | Outpatient (POV) | payer MEDICARE, MEDICAID, SELFPAY ==
--- NOTE | 2023-03-08 11:39 | EXP.PAIN.SOA ---
[facility] Pain Management SOAP Note Subjective:: Patient is a pleasant 67-year-old female who presents today for follow-up. We are currently treating the patient for chronic left knee pain and left knee osteoarthritis. Today she rates her pain a 0 out of 10 however she states the pain will get up to a 6 out of 10 with increased activity and ambulation. Patient states that she just has not started moving around much this morning. Patient does state the pain is a constant aching, throbbing sensation that is worse the longer she is up on her feet. She states the pain does limit her ability perform activities of daily living such as cooking and cleaning. Patient states she has limited range of motion in this knee. Patient did have 100% improvement following a genicular nerve back in August however her second 1 was denied due to insurance no longer covering this injection. Patient is interested in any help we may be able to provide. Patient has tried and failed conservative therapy such as oral medication, heat and ice, topicals, at home stretching exercise for longer than 12 weeks. Her Adam has been reviewed and is appropriate. Review of Systems: General: No recent weight changes, no fever, no sleep disturbances Respiratory: No cough, no shortness of air, no recurring pulmonary infections Cardiovascular/peripheral vascular: No chest pain, no palpitations, no edema, no shortness of breath Gastrointestinal: No new onset incontinence, normal bowel movements reported Genitourinary: No new onset incontinence Musculoskeletal: Left knee pain Psychiatric: [Normal mood/affect] Neurological: [Denies weakness in extremities], [denies balance issues] Objective:: Physical Exam: General: Alert and oriented x3, no acute distress, pleasant and cooperative Lungs: Respirations even and unlabored, symmetrical chest expansion Eyes: PERRL Musculoskeletal: Flexion and extension of left knee somewhat guarded secondary to pain, [antalgic gait noted] Neurological: Speech clear, no gross sensory deficit Assessment:: Left knee pain, left knee osteoarthritis Plan:: Patient continues to experience significant issues with her left knee with pain and limited range of motion. I have discussed with patient that she may benefit from trigger point injections around her knee joint. Risk and benefits were discussed with patient and she would like to proceed forward with this plan of care. We will schedule the patient for left knee trigger point injections. Patient has been instructed to contact the clinic with any concerns before the next appointment. Dr. Bernal has reviewed this note and agrees with this plan of care. This note was dictated using voice recognition software and make contain errors or omissions. [facility] Disclaimer: The information contained in this section may have been updated after the patient was seen, as this information can be updated by other users. Medical History Abnormal electrocardiogram [ECG] [EKG] Coronary artery disease HTN (hypertension) Hyperthyroidism LBBB (left bundle branch block) Right arm numbness Stenosis of carotid artery Surgical History History of appendectomy History of cholecystectomy History of loop recorder syncope-implant DEC 2021 Family History Father Coronary artery disease Heart attack Brother Cancer Mother Stroke Social History Smoking Status: Never smoker alcohol intake: never substance use type: marijuana current occupational status: retired Travel in the last 8 weeks: None household members: other housing: apartment marital status:
[2023-03-08 11:47] VITALS: BP 135/76; PULSE 75; RESP 18; O2SAT 96; BMI 24.5
== END ==
LOC: SC.PAIN 11:12
PROVIDERS: Visit Provider Nurse Practitioner Family
DX: M17.12 Unilateral primary osteoarthritis, left knee (principal); M25.562 Pain in left knee
CPT/HCPCS: 99212; G0463

== ENCOUNTER 2023-03-30 09:15 | Day surgery (SDC) | payer MEDICARE, SELFPAY ==
[2023-03-30 09:39] VITALS: BP 148/81; PULSE 63; RESP 16; O2SAT 97; BMI 24.7
[2023-03-30 10:00] VITALS: BP 162/81; PULSE 55; RESP 16; O2SAT 97
--- NOTE | 2023-03-30 10:04 | EXP.PAIN.PRO ---
Procedure Date: 03/30/23 Time: 09:50 Anesthesiologist:: Tomer Dhaliwal CRNA Complications:: None Pre-procedure Diagnosis:: DJD left knee. Chronic left knee pain. Post-procedure Diagnosis:: Same. Indications for Procedure:: Patient is a very pleasant 67-year-old female comes our clinic today for repeat left genicular nerve block. Patient reports 90% improvement terms of her overall left knee pain lasting 3 to 4 weeks with previous left knee genicular nerve block. Procedure Details:: Informed consent was obtained and the risk and benefits of the procedure was explained to the patient. The patient was taken to the procedure room. The left knee was prepped using ChloraPrep. I placed 22-gauge needles into the area of the left superior medial genicular nerve, left superior lateral genicular nerve and left inferior medial genicular nerve. Needle placement was confirmed in AP and lateral views with dye. We then injected bupivacaine 0.25% 3 mL's and Depo-Medrol 25 mg into each area of the left superior medial genicular nerve, left superior lateral genicular nerve and left inferior medial genicular nerve. Patient tolerated the procedure well with no complications. Plan and Disposition:: Patient was discharged without incident.
[2023-03-30 10:50] VITALS: BP 150/92; PULSE 65; RESP 18; O2SAT 95
[2023-03-30] MEDS: methylPREDNISolone ACETATE 80MG/ML VIAL 80 MG (10:50)
[2023-03-30] MEDS: BUPIVACAINE 0.25% 10ML INJ 25 MG IJ (10:50)
[2023-03-30] MEDS: LIDOCAINE 1% 5ML PF VIAL 5 ML (10:50)
[2023-03-30 10:55] VITALS: BP 150/92; PULSE 65; RESP 18; O2SAT 95
== END 2023-03-30 10:00 | disposition home or self-care (01) ==
PROVIDERS: PCP Nurse Practitioner Family; Visit Provider Nurse Anesthetist, Certified Registered
DX: M17.12 Unilateral primary osteoarthritis, left knee (principal); M25.562 Pain in left knee; G89.29 Other chronic pain
CPT/HCPCS: 64454; J1040

== ENCOUNTER 2023-10-27 09:59 | Outpatient (POV) | payer MEDICARE, SELFPAY ==
[2023-10-27 10:09] VITALS: BP 145/79; PULSE 79; RESP 16; O2SAT 97; BMI 23.5
--- NOTE | 2023-10-27 10:12 | A.OFFVIS_ITS ---
[facility] Disclaimer: The information contained in this section may have been updated after the patient was seen, as this information can be updated by other users. Medical History Abnormal electrocardiogram [ECG] [EKG] Coronary artery disease HTN (hypertension) Hyperthyroidism LBBB (left bundle branch block) Right arm numbness Stenosis of carotid artery Surgical History History of appendectomy History of cholecystectomy History of loop recorder syncope-implant DEC 2021 Family History Father Coronary artery disease Heart attack Brother Cancer Mother Stroke Social History Smoking Status: Never smoker alcohol intake: never substance use type: marijuana current occupational status: unemployed Travel in the last 8 weeks: None household members: other housing: apartment marital status: PM Subjective & Objective Subjective Subjective:: Patient is a pleasant 67-year-old female who presents today for follow-up of left genicular nerve block on March 30, 2023. Today she rates her pain a 1 out of 10. Patient states that she has had at least 80% improvement if not more following this procedure. She states she still is getting consistent relief on a daily basis and feels much more functional. Patient states her only complaint is that she does have an occasional clicking however it is not constant and does not bother her to where she needs any additional injections or interventions. Her Adam has been reviewed and is appropriate. Review of Systems: General: No recent weight changes, no fever, no sleep disturbances Respiratory: No cough, no shortness of air, no recurring pulmonary infections Cardiovascular/peripheral vascular: No chest pain, no palpitations, no edema, no shortness of breath Gastrointestinal: No new onset incontinence, normal bowel movements reported Genitourinary: No new onset incontinence Musculoskeletal: Left knee pain Psychiatric: [Normal mood/affect] Neurological: [Denies weakness in extremities], [denies balance issues] Pain at rest (0-10 scale): 1 Objective Objective:: Physical Exam: General: Alert and oriented x3, no acute distress, pleasant and cooperative Lungs: Respirations even and unlabored, symmetrical chest expansion Eyes: PERRL Musculoskeletal: Flexion and extension of left knee somewhat guarded secondary to pain Neurological: Speech clear, no gross sensory deficit Has patient had previous pain injection?: Yes Percent improvement in pain since last injection: 80% Conservative treatment options previously tried: Home exercise plan Length of treatment: Longer than 6 weeks Meds Home Medications and Allergies Home Medications ?Medication ?Instructions ?Recorded ?Confirmed ?Type aspirin 81 mg capsule 81 mg PO DAILY BLOOD 11/28/21 10/27/23 History atorvastatin 40 mg tablet 40 mg PO HS Cholesterol 11/28/21 10/27/23 History levothyroxine 75 mcg tablet 75 mcg PO DAILY THYROID 11/28/21 10/27/23 History cholecalciferol (vitamin D3) 25 25 mcg PO DAILY SUPPLIMENT 12/25/21 10/27/23 History mcg (1,000 unit) capsule fluoxetine 20 mg capsule 20 mg PO DAILY MOOD 01/22/22 10/27/23 History metoprolol succinate 25 mg 25 mg PO DAILY BLOOD PRESSURE 08/10/22 10/27/23 History tablet,extended release 24 hr losartan 100 mg tablet 100 mg PO DAILY BLOOD PRESSURE 08/27/22 10/27/23 History New Prescriptions to Start Prescriptions: Allergies Allergy/AdvReac Type Severity Reaction Status Date / Time Penicillins Allergy Unknown Verified 03/30/23 09:40 Assessment and Plan *Assessment and plan (1) Left knee pain: Status: Acute Qualifiers: Chronicity: chronic Qualified Code(s): M25.562 - Pain in left knee; G89.29 - Other chronic pain Category: Medical Code(s): M25.562 - Pain in left knee Plan Patient has had significant improvement following her genicular nerve block and does not require any additional injection therapy at this time. Patient will return to clinic in 6 months for reevaluation of symptoms and plan of care. Patient has been instructed to contact the clinic with any concerns before the next appointment. Dr. Bernal has reviewed this note and agrees with this plan of care. This note was dictated using voice recognition software and make contain errors or omissions. All injections are used with Lidocaine or Bupivacaine and Depo Medrol.
== END 2023-10-27 23:59 | disposition home or self-care (01) ==
PROVIDERS: PCP Pediatrics; Visit Provider Nurse Practitioner Family
DX: M25.562 Pain in left knee (principal); G89.29 Other chronic pain; F12.90 Cannabis use, unspecified, uncomplicated; I25.10 Atherosclerotic heart disease of native coronary artery without angina pectoris; I10 Essential (primary) hypertension; Z95.811 Presence of heart assist device
CPT/HCPCS: 99212; G0463

== ENCOUNTER 2024-11-28 08:33 | Outpatient (CLI) | payer MEDICARE, SELFPAY ==
--- OUTSIDE RECORDS SUMMARY | 2024-10-24 07:58 | XMS_ITS | Encounter Summary ---
Author Organization [place] [address] Care Team Providers Care Weed Sprayer Name Role Phone Diego Gutierrez MD Primary Care Provider [phone] Maryjane Townsend MD Unavailable [phone] Reason for Referral * MRI/CAT Scan (Routine) - Authorization Not Needed Specialty Diagnoses / Procedures Referred By Contac t Referred To Contact Radiology Diagnoses Cigarette nicotine dependence without complication Procedures CT LUNG CANCER SCREENING LOW DOSE Josephine Hensley NP [address] [facility] [place] [address] Phone: tel: fax: Referral ID Status Reason Start Date Expiration Date Visits Requested Visits Authorized [id number] Authorization Not Needed 10/24/2024 01/24/2026 1 1 * Consultation (Routine) - Pending Review Specialty Diagnoses / Procedures Referred By Contac t Referred To Contact Diagnoses History of breast cancer Procedures CO OFFICE/OUTPATIENT NEW MODERATE MDM 45 MINUTES Josephine Hensley NP [address] [facility] [place] [address] Phone: tel: fax: Referral ID Status Reason Start Date Expiration Date V isits Requested Visits Authorized [id number] Pending Review 10/24/2024 10/24/2025 1 1 Question Answer Patient Status Remission Reason for referral? Survivorship * DEXA (Routine) - Pending Review Specialty Diagnoses / Procedures Referred By Contac t Referred To Contact Radiology Diagnoses Post-menopausal Procedures DX BONE DENSITY AXIAL SKELETON Josephine Hensley NP [address] [facility] [place] [address] Phone: tel: fax: Referral ID Status Reason Start Date Expiration Date V isits Requested Visits Authorized [id number] Pending Review 10/24/2024 10/24/2025 1 1 * Mammography (Routine) - Pending Review Specialty Diagnoses / Procedures Referred By Geetha t Referred To Contact Radiology Diagnoses History of breast cancer Procedures MM MAMMO DIGITAL MAYTE DIAGN BILAT Josephine Hensley NP [address] [facility] [place] [address] Phone: tel: fax: Referral ID Status Reason Start Date Expiration Date V isits Requested Visits Authorized [id number] Pending Review 10/24/2024 10/24/2026 1 1 Reason for Visit * Reason Comments Follow-up Encounter Details Date Type Department Care Team (Latest Contact Info) Description 10/24/2024 7:58 AM EDT - 10/24/2024 11:59 PM EDT Hospital Encounter [facility] [place] [address] Josephine Hensley NP [address] [facility] [place] [address] Invasive ductal carcinoma of left breast (HCC) (Primary Dx); Encounter for monitoring aromatase inhibitor therapy; Post-menopausal; History of breast cancer; Cigarette nicotine dependence without complication Discharge Disposition: Home or Self Care Social History Tobacco Use Types Packs/Day Years Used Date Smoking Tobacco: Every Day Cigarettes 1.5 35.2 Started: 10/21/1971; Last attempted to quit: 03/03/2006 Smokeless Tobacco: Never Tobacco Cessation:Ready to Q uit: Not Asked; Counseling Given: Not Answered Comments:States a about 14 cigarettes per week Alcohol Use Standard Drinks/Week Comments No 0 (1 standard drink = 0.6 oz pur e alcohol) B1300 Health Literacy Answer Date Recor ded How often do you need to hav e someone help you when you read instructions, pamphlets, or other written material from your doctor or pharmacy? Never 03/09/2024 [facility] Utilities Answer Date Recorded In the past 12 months has th e electric, gas, oil, or water company threatened to shut off services in your home? No 03/09/2024 Social Connection and Isolat ion Panel [NHANES] Answer Date Recorded In a typical week, how many times do you talk on the phone with family, friends, or neighbors? More than three times a week 03/09/2024 How often do you get togethe r with friends or relatives? Three times a week 03/09/2024 Attends Mu-Ism Services Not on file 03/09 Active Member of Clubs or Organizations Not on f ile 03/09/2024 Attends Club or Organization Meetings Not on arabella e 03/09/2024 Are you , , di vorced, , never , or living with a partner? 03/09/2024 AUDIT-C Answer Date Recorded Q1: How often do you have a drink containing alcohol? Never 03/09/2024 Q2: How many drinks containi ng alcohol do you have on a typical day when you are drinking? Patient does not drink Q3: How often do you have si x or more drinks on one occasion? Never 03/09/2024 Overall Financial Resource Strain (CARDIA) Answe r Date Recorded How hard is it for you to pa y for the very basics like food, housing, medical care, and heating? Not hard at all 03/09/2024 PHQ-2 Answer Date Recorded PHQ-2 Total Score 0 03/09/2024 [place] [place] [facility] - Occupational Stress Questionnaire Answer Date Recorded Do you feel stress - tense, restless, nervous, or anxious, or unable to sleep at night because your mind is troubled all the time - these days? Not at all 03/09/2024 Exercise Vital Sign Answer Date Recorde d On average, how many days pe r week do you engage in moderate to strenuous exercise (like a brisk walk)? 0 days 03/09/2024 On average, how many minutes do you engage in exercise at this level? 0 min 03/09/2024 Hunger Vital Sign Answer Date Recorded Within the past 12 months, y ou worried that your food would run out before you got the money to buy more. Never true 03/09/20 24 Within the past 12 months, t he food you bought just didn't last and you didn't have money to get more. Never true 03/09/2024 PRAPARE - Transportation Answer Date Re corded In the past 12 months, has l ack of transportation kept you from medical appointments or from getting medications? No 02/19 In the past 12 months, has l ack of transportation kept you from meetings, work, or from getting things needed for daily living? No 03/09/2024 Housing Stability Vital Sign Answer Jeremi e Recorded In the last 12 months, was t here a time when you were not able to pay the mortgage or rent on time? No 03/09/2024 In the past 12 months, how m any times have you moved where you were living? 0 03/09/2024 At any time in the past 12 m [place], were you homeless or living in a alf (including now)? No 03/09/2024 Sexually Active Control Partners Comments Yes Post-menopausal Male Comments No Sex and Gender Information Value Date Recorded Sex Assigned at Not on file Legal Sex Female 3:12 PM EDT Gender Identity Not on file Sexual Orientation Not on file documented as of this encounter Last Filed Vital Signs Vital Sign Reading Time Taken Comments Blood Pressure 128/83 10/24/2024 8:19 AM EDT Pulse 65 10/24/2024 8:19 AM EDT Temperature 36.2 C (97.1 F) 10/24/2024 8:19 AM EDT Respiratory Rate - - Oxygen Saturation - - Inhaled Oxygen Concentration - - Weight 68.9 kg (151 lb 14.4 oz) 10/24/2024 8:19 AM EDT Height 170.2 cm (5' 7 ) 10/24/2024 8:19 AM EDT Body Mass Index 23.79 10/24/2024 8:19 AM EDT documented in this encounter Functional Status * Is the person deaf or does he/she have serious difficulty hearing? Answer Date of Assessment Author No 01/25/2024 7:58 AM Clifford Edgar CCMA * Is the person blind or does he/she have serious difficulty seeing even when wearing glasses? Answer Date of Assessment Author No 01/25/2024 7:58 AM Clifford Edgar CCMA * Does this person have serious difficulty walking or climbing stairs? Answer Date of Assessment Author No 01/25/2024 7:58 AM Clifford Edgar CCMA * Does this person have difficulty dressing or bathing? Answer Date of Assessment Author No 01/25/2024 7:58 AM Clifford Edgar CCMA * Because of a physical, mental or emotional condition, does this person have difficulty doing errands alone such as visiting a doctor's office or shopping? Answer Date of Assessment Author No 01/25/2024 7:58 AM Clifford Edgar CCMA documented as of this encounter Mental Status * Because of a physical, mental or emotional condition, does this person have serious difficulty concentrating, remembering or making decisions? Answer Entry Date Author No 01/25/2024 7:58 AM Clifford Edgar CCMA documented in this encounter Medications at Time of Discharge anastrozole (ARIMIDEX) 1 mg Oral TabletIndications:In vasive ductal carcinoma of left breast (HCC) Take 1 Tablet by mouth daily. Begin taking Arimidex when radiation is complete 90 Tablet 3 04/17/2024 aspirin (ASPIRIN) 81 mg Oral Tablet, ChewableIndications: Family history of cardiovascular disease Take 1 Tab by mouth daily. 30 Tab 11 04/04/2018 atorvastatin (LIPITOR) 40 mg Oral Tablet Take 1 Tablet by mouth once daily. 100 Tablet 1 07/13/2024 cyanocobalamin 1,000 mcg Oral Tablet Take 1,000 mcg by mouth daily. emollient combination no.63 (MIADERM) Top Lotion Apply topically 3 times daily as needed. FLUoxetine (PROZAC) 20 mg Oral CapsuleIndications:M ood disorder Take 1 Capsule by mouth daily. 90 Capsule 1 04/27/2024 LEVOthyroxine (SYNTHROID) 75 mcg Oral Tablet Take 1 Tablet by mouth daily. 100 Tablet 2 03/10/2024 losartan (COZAAR) 100 mg Oral TabletIndications:Nuno dy aches Take 1 Tablet by mouth once daily. 90 Tablet 3 11/11/2023 metoprolol succinate (TOPROL-XL) 25 mg Oral Tablet Sustained Release 24 hrIndications:NSVT (nonsustained ventricular tachycardia) (HCC) Take 1 Tablet by mouth daily. 90 Tablet 3 08/31/2024 mineral oil-hydrophilic petrolatum (AQUAPHOR) Top Ointment Apply topically as needed (apply sparingly to skin in radiation treatment field). oxybutynin (DITROPAN-XL) 10 mg Oral Tablet Extended Rel 24 hrIndications:OAB (overactive bladder) Take 1 Tablet by mouth daily. 30 Tablet 5 08/31/2024 triamcinolone (KENALOG) 0.1 % Top CreamIndications:Num mular eczematous dermatitis Apply topically 2 times daily. Apply twice daily to affected areas. Apply two weeks on, one week off, repeat. Stop when resolved. - Do not apply to face, armpits, groin, or other skin folds. 80 g 3 01/25/2024 documented as of this encounter Discharge Disposition Disposition Code Departure Means Destination Home or Self Care documented in this encounter Progress Notes * Josephine Hensley NP - 10/24/2024 8:30 AM EDT Images from the original note were not included. Patient: Rosanna Keys Date of : 1955 Age: 68 y.o. Date of Service: 10/24/2024 SURGICAL ONCOLOGY FOLLOW UP VISIT Surgical Oncologist: Dr. Timothy Rosas Radiation Oncologist: Dr. Maryjane Townsend CURRENT TREATMENT: Anastrozole 1 mg (ARIMIDEX) - started taking 06/15/24 - compliant, tolerating well DEXA scan completed 01/11/23 - normal bone density HISTORY OF PRESENT ILLNESS: Rosanna Keys is coming today for survivorship visit of left IDC ER+. S/p segmentectomy/SLND 1/14/25. Completed XRT with Dr. Townsend. Denies new breast lumps, skin changes, nipple discharge, or adenopathy. No arm swelling. Bra fits ok. Pt denies any new SOB, trouble swallowing, new bone pain, or appetite changes. No recent hospitalizations or ER visits. Recently started smoking again- has about 4 cigarettes a day. Recently lost job, not looking for new right now GENETICS/FAMILY HISTORY: Genetics Negative ([employer] 39-gene panel). No new family members with breast, ovarian, prostate, pancreatic or melanoma cancer. Cancer-related family history includes Breast Cancer in her maternal aunt; Breast Cancer (age of onset: 46) in her niece; Prostate Cancer (age of onset: 68) in her father; Prostate Cancer (age of onset: 76) in her brother. 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 John Rosas 03/20/2024 - Genetics Negative Startup [employer] CancerNext Panel (39 Genes) 04/04/2024 Surgery A. LEFT SENTINEL LYMPH NODE BIOPSY: - Two lymph nodes, negative for metastatic carcinoma (0/2). B. BREAST, LEFT, SEGMENTECTOMY: - Invasive ductal carcinoma grade 3. - Tumor size: 17 mm. - Ductal carcinoma in situ (DCIS), grade 2 - DCIS spans 17 mm, involving rare duct spaces. - Margins are negative for invasive carcinoma: - Margins are negative for DCIS. - Negative for lymphovascular invasion. - Calcifications identified, associated with invasive carcinoma and nonneoplastic parenchyma. 04/27/2024 - Oncotype Oncotype Breast Cancer Recurrence Score = 21. No chemo recommended 05/30/2024 - 06/12/2024 Radiation Tx Adjuvant ultra hypofractionated external beam radiotherapy to a total dose of 36 Gy in 10 fractions; 26 Gy to the left breast +10 Gy seroma boost. Deep inspiration breath-hold (ESTEFANIA H) to limit radiation dose to heart. Primary radiation oncologist,Dr. Townsend. 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 Appearance: Normal appearance. She is normal weight. She is not ill-appearing. HENT: Head: Normocephalic and atraumatic. Pulmonary: Effort: Pulmonary effort is normal. Chest: Breasts: Breasts are symmetrical. Right: Normal. No swelling, bleeding, inverted nipple, mass, nipple discharge, skin change or tenderness. Left: No swelling, bleeding, inverted nipple, mass, nipple discharge, skin change or tenderness. Comments: Left segmentectomy/SLND noted with hyperpigmentation Musculoskeletal: Cervical back: Normal range of motion. Lymphadenopathy: Upper Body: Right upper body: No supraclavicular or axillary adenopathy. Left upper body: No supraclavicular or axillary adenopathy. Neurological: Mental Status: She is alert. Psychiatric: Mood and Affect: Mood normal. Behavior: Behavior normal. Thought Content: Thought content normal. Judgment: Judgment normal. MEDICATIONS Current Outpatient Medications on File Prior to Encounter Medication Sig Dispense Refill anastrozole (ARIMIDEX) 1 mg Oral Tablet Take 1 Tablet by mouth daily. Begin taking Arimidex when radiation is complete 90 Tablet 3 aspirin (ASPIRIN) 81 mg Oral Tablet, Chewable Take 1 Tab by mouth daily. 30 Tab 11 atorvastatin (LIPITOR) 40 mg Oral Tablet Take 1 Tablet by mouth once daily. 100 Tablet 1 FLUoxetine (PROZAC) 20 mg Oral Capsule Take 1 Capsule by mouth daily. 90 Capsule 1 LEVOthyroxine (SYNTHROID) 75 mcg Oral Tablet Take 1 Tablet by mouth daily. 100 Tablet 2 losartan (COZAAR) 100 mg Oral Tablet Take 1 Tablet by mouth once daily. 90 Tablet 3 metoprolol succinate (TOPROL-XL) 25 mg Oral Tablet Sustained Release 24 hr Take 1 Tablet by mouth daily. 90 Tablet 3 mineral oil-hydrophilic petrolatum (AQUAPHOR) Top Ointment Apply topically as needed (apply sparingly to skin in radiation treatment field). oxybutynin (DITROPAN-XL) 10 mg Oral Tablet Extended Rel 24 hr Take 1 Tablet by mouth daily. 30 Tablet 5 triamcinolone (KENALOG) 0.1 % Top Cream Apply topically 2 times daily. Apply twice daily to affected areas. Apply two weeks on, one week off, repeat. Stop when resolved. - Do not apply to face, armpits, groin, or other skin folds. 80 g 3 cyanocobalamin 1,000 mcg Oral Tablet Take 1,000 mcg by mouth daily. (Patient not taking: Reported on 10/24/2024) emollient combination no.63 (MIADERM) Top Lotion Apply topically 3 times daily as needed. (Patient not taking: Reported on 10/24/2024) No current facility-administered medications on file prior to encounter. PAST MEDICAL / SURGICAL HISTORY: Past Medical History: Diagnosis Date Anesthesia complication slow to wake up Arthritis all over Depression Eczema Hyperlipidemia Hypertension Invasive ductal carcinoma of left breast (HCC) 03/01/2024 Overactive bladder Screening mammogram normal Thyroid disease Past Surgical History: Procedure Laterality Date APPENDECTOMY BREAST LUMPECTOMY Left 04/04/2024 Left breast mammogram guided segmentectomy, sentinel lymph node dissection; Surgeon: Timothy Rosas MD; Location: [facility] MAIN OR; Service: General CERVIX BIOPSY N/A 05/13/2018 COLD KNIFE CONE; Surgeon: Hiwot Aleman MD; Location: [facility] MAIN OR; Service: Gynecology CHOLECYSTECTOMY, LAPAROSCOPIC N/A 05/28/2016 LAPAROSCOPIC CHOLECYSTECTOMY, LYSIS OF ADHESIONS; Surgeon: Oz Kuhn MD; Location: [facility] MA[facility] OR; Service: General COLONOSCOPY 11/06/2010 repeat 10 years DILATION AND CURETTAGE OF UTERUS 02/09/2012 DILATION AND CURETTAGE HYSTEROSCOPY ; Surgeon: Ciaran Edwards MD; Location: [facility] MAIN OR; Service: Gynecology KNEE ARTHROSCOPY Left 05/10/2015 LEFT KNEE EXAM UNDER ANESTHESIA ARTHROSCOPY PARTIAL MEDIAL MENISCECTOMY PARTIAL LATERAL MENISCECTOMY CHONDROPLASTY INTRA-ARTICULAR INJECTION ; Surgeon: Devyn Ford MD; Location: [facility]; Service: Orthopedics KNEE JOINT MANIPULATION Left 05/10/2015 Surgeon: Devyn Ford MD; Location: [facility]; Service: Orthopedics MM US BREAST BIOPSY LEFT Left 02/28/2024 MM US BREAST BIOPSY LEFT Left 02/28/2024 MM US BREAST BIOPSY LEFT 02/28/2024 Timothy Schneider MD [facility]AMMOGRAP[facility] OVARIAN CYST REMOVAL 03/22/1970 laparotomy UPPER GASTROINTESTINAL ENDOSCOPY US GUIDED NEEDLE PLACEMENT Left 04/04/2024 2:00 o'clock No Known Allergies Social History Socioeconomic History Marital status: Spouse name: Not on file Number of children: Not on file Years of education: Not on file Highest education level: Not on file Occupational History Not on file Tobacco Use Smoking status: Every Day Current packs/day: 0.50 Average packs/day: 1.5 packs/day for 35.1 years (51.9 ttl pk-yrs) Types: Cigarettes Start date: 10/21/1971 Last attempt to quit: 03/03/2006 Smokeless tobacco: Never Tobacco comments: States a about 14 cigarettes per week Vaping Use Vaping status: Never Used Substance and Sexual Activity Alcohol use: No Drug use: Yes Types: Marijuana Comment: every day Sexual activity: Yes Partners: Male control/protection: Post-menopausal Other Topics Concern Not on file Social History Narrative Not on file Social Drivers of Health Financial Resource Strain: Low Risk (03/09/2024) Overall Financial Resource Strain (CARDIA) Difficulty of Paying Living Expenses: Not hard at all Food Insecurity: No Food Insecurity (03/09/2024) Hunger Vital Sign Worried About Running Out of Food in the Last Year: Never true Ran Out of Food in the Last Year: Never true Transportation Needs: No Transportation Needs (03/09/2024) PRAPARE - Transportation Lack of Transportation (Medical): No Lack of Transportation (Non-Medical): No Physical Activity: Inactive (03/09/2024) Exercise Vital Sign Days of Exercise per Week: 0 days Minutes of Exercise per Session: 0 min Stress: No Stress Concern Present (03/09/2024) [place] [employer] [facility] - Occupational Stress Questionnaire Feeling of Stress : Not at all Social Connections: Unknown (03/09/2024) Social Connection and Isolation Panel [NHANES] Frequency of Communication with Friends and Family: More than three times a week Frequency of Social Gatherings with Friends and Family: Three times a week Attends Mu-Ism Services: Not on file Active Member of Clubs or Organizations: Not on file Attends Club or Organization Meetings: Not on file Marital Status: Intimate Partner Violence: Not At Risk (03/09/2024) Humiliation, Afraid, Rape, and Kick questionnaire Fear of Current or Ex-Partner: No Emotionally Abused: No Physically Abused: No Sexually Abused: No Housing Stability: Low Risk (03/09/2024) Housing Stability Vital Sign Unable to Pay for Housing in the Last Year: No Number of Times Moved in the Last Year: 0 Homeless in the Last Year: No ASSESSMENT & PLAN Assessment & Plan Invasive ductal carcinoma of left breast (HCC) - ISIS by exam - Pt due for bilateral diagnostic M/g in six months. Will continue annual Dx Mammogram for 5 years,then screening thereafter - Continue Arimidex, - Reviewed and discussed survivorship care plan and assessed emotional, sexual, and physical healthneeds in detail with patient. All surveillance and health maintenance information reviewed. - Reinforced sun protection and preventative health maintenance - Pt with good emotional and physical support from friends and family - Pt encouraged to continue monthly SBE. - Discussed importance of diet and exercise for risk reduction and overall health benefits. Encounter for monitoring aromatase inhibitor therapy - tolerating well, will continue current therapy - Discussed importance of bone health, especially when taking an AI. Pt encouraged to continue Vitamin D3, Calcium, and weight bearing exercises -DEXA due in Dec Post-menopausal Orders: DX BONE DENSITY AXIAL SKELETON; Future History of breast cancer Orders: MM MAMMO DIGITAL MAYTE DIAGN BILAT; Future AMB REFERRAL TO [facility] Cigarette nicotine dependence without complication Orders: CT LUNG CANCER SCREENING LOW DOSE; Future Dispo: No follow-ups on file. Thank you for the opportunity to assist in the care of this patient. Josephine Hensley NP Breast [facility] Total time approx. 50 minutes, including review of notes, keou-ce-pvew interaction, and documentation. Reviewed past pathology and treatments, discussed future imaging and surveillance recommendations, reviewed common side effects of surgery, radiation, endocrine therapy and signs and symptoms of re currence to watch for, monthly self breast exam technique, and discussed importance of diet and exercise on overall health and recurrence risk reduction. Counseling and support group information given. * Tracey Hanley RN - 10/24/2024 8:30 AM EDT Patient is seen today for a f/u and survivorship visit. Hx of L IDC She takes Arimnidex daily w/out difficulty. Last DEXA scan 01/11/23 She denies breast pain, no nipple discharge. She denies SOB or back pain. Family Hx updated. Assessed patient's nutritional needs, activity level and weight change from diagnosis to today's visit. Offered nutritional counseling information and information for activity and exercise. Josephine in to evaluate patient, perform CBE and review SCP and surveillance guidelines. Copy given topatient. P: Knowledge deficit r/t breast surveillance and SBE. G: Educate pt. I: Discussed signs/symptoms to watch for and report post breast cancer. Discussed continuing monthly self breast exam, written material provided. Discussed to continue taking Arimidex daily. Discussed importance of healthy diet and exercise for overall health benefits and cancer risk reduction. [facility] support provided. Reviewed and provided discharge instructions. Patient stated understanding. NEXT Dx M/m in March. Ordered. Return in March with [facility]. Integrative oncology referral yes Patient to check my chart for the date and time of her follow up no will schedule now documented in this encounter Miscellaneous Notes * Patient Instructions - Tracey Hanley RN - 10/24/2024 8:30 AM EDT Images from the original note were not included. Recommendations - Continue taking Anastrozole 1 mg (ARIMIDEX) - Continue monthly self breast exams Next Appointment You are due for a follow-up visit in March. You area also due for Bilateral Diagnostic Mammogram and DEXA scan due in December Breast Health Nurse Contact - Report new changes by calling the Breast Health Nurse Line at [phone]. Please remember the nurse checks voice mail messages throughout the day. However, if the nurse taking care of the phone messages is with another patient, she may not be able to return your call until later in the day. If you need immediate assistance or if there is an emergency, please call your doctor's number or go tot Emergency Room. [place] The number to our [employer] is [phone]. You may call to set up an appointment or just stop in, however, an appointment is recommended. Breast Self-Awareness Breast self-awareness means: Knowing how your breasts look. Knowing how your breasts feel. Checking your breasts every month for changes. Telling your doctor if you notice a change in your breasts. Breast self-awareness allows you to notice a breast problem early while it is still small. How to do a breast self-exam One way to learn what is normal for your breasts and to check for changes is to do a breast self-exam. To do a breast self-exam: Look for Changes Take off all the clothes above your waist. freight engineer front of a mirror in a room with good lighting. Put your hands on your hips. Push your hands down. Look at your breasts and nipples in the mirror to see if one breast or nipple looks different than the other. Check to see if: The shape of one breast is different. The size of one breast is different. There are wrinkles, dips, and bumps in one breast and not the other. Look at each breast for changes in your skin, such as: Redness. Scaly areas. Look for changes in your nipples, such as: Liquid around the nipples. Bleeding. Dimpling. Redness. A change in where the nipples are. Feel for Changes Lie on your back on the floor. Feel each breast. To do this, follow these steps: Pick a breast to feel. Put the arm closest to that breast above your head. Use your other arm to feel the nipple area of your breast. Feel the area with the pads of your three middle fingers by making small circles with your fingers. For the first minto, press lightly. Forthe second minto, press harder. For the third minto, press even harder. Keep making circles with your fingers at the light, harder, and even harder pressures as you move down your breast. Stop when you feel your ribs. Move your fingers a little toward the center of your body. Start making circles with your fingers again, this time going up until you reach your collarbone. Keep making up and down circles until you reach your armpit. Remember to keep using the three pressures. Feel the other breast in the same way. Sit or fitness coordinator the shower or tub. With soapy water on your skin, feel each breast the same way you did in step 2, when you were lyingon the floor. Write Down What You Find After doing the self-exam, write down: What is normal for each breast. Any changes you find in each breast. When you last had your period. How often should I check my breasts? Check your breasts every month. If you are , the best time to check them is after you feed your baby or after you use a breast pump. If you get periods, the best time to check your breasts is 5-7 days after your period is over. When should I see my doctor? See your doctor if you notice: A change in shape or size of your breasts or nipples. A change in the skin of your breast or nipples, such as red or scaly skin. Unusual fluid coming from your nipples. A lump or thick area that was not there before. Pain in your breasts. Anything that concerns you. This information is not intended to replace advice given to you by your health care provider. Make sure you discuss any questions you have with your health care provider. Document Released: 08/24/2008 Document Revised: 08/13/2016 Document Reviewed: 01/26/2016 [employer] Interactive Patient Education ?? 2018 [employer] It is best not to drink alcohol. Alcohol increases risk of breast cancer. Even drinking small amounts of alcohol has been linked with an increase in risk. It is best not to drink alcohol at all. For women who do drink, they should have no more than 1 alcoholic drink a day. A drink is 12 ounces of beer, 5 ounces of wine, or 1.5 ounces of 80-proof distilled spirits (hard liquor). BONE HEALTH Bones protect organs, store calcium, anchor muscles, and support the whole body. Keeping your bonesstrong is important, especially as you get older. You can take actions to help keep your bones strong and healthy. Get enough calcium - recommended 1200mg/day (take no more than 600mg at one time for best absorption) Calcium is the most important (essential) mineral for bone health. Most people can get enough calcium from their diet, but supplements may be recommended for people who are at risk for osteoporosis. Good sources of calcium include: Dairy products, such as low-fat or nonfat milk, cheese, and yogurt. Dark green leafy vegetables, such as bok leta and broccoli. Calcium-fortified foods, such as orange juice, cereal, bread, soy beverages, and tofu products. Nuts, such as almonds. Get enough vitamin D - recommend 2349-1037 IU/day Vitamin D is the most essential vitamin for bone health. It helps the body absorb calcium. Sunlightstimulates the skin to make vitamin D, so be sure to get enough sunlight. If you live in a cold climate or you do not get outside often, your health care provider may recommend that you take vitamin D supplements. Good sources of vitamin D in your diet include: Egg yolks. Saltwater fish. Milk and cereal fortified with vitamin D. Get other important nutrients Other nutrients that are important for bone health include: Phosphorus. This mineral is found in meat, poultry, dairy foods, nuts, and legumes. The recommendeddaily intake for adult women is 700 mg. Magnesium. This mineral is found in seeds, nuts, dark green vegetables, and legumes. The recommended daily intake for adult women, it is 310-320 mg. Vitamin K. This vitamin is found in green leafy vegetables. The recommended daily intake is 90 mg for adult women. What type of physical activity is best for building and maintaining healthy bones? Weight-bearing and strength-building activities are important for building and maintaining healthy bones. Weight-bearing activities cause muscles and bones to work against gravity. Strength-building activities increase the strength of the muscles that support bones. Weight-bearing and muscle-building activities include: Walking and hiking. Jogging and running. Dancing. Gym exercises. Lifting weights. Tennis and racquetball. Climbing stairs. Aerobics. Where can I find more information? For more information, check out the following websites: National Osteoporosis Foundation: www.nof.org/patients Osteoporosis Patient Education and Information National Institutes of Health: www.bones.nih.gov Bone Health and Osteoporosis NIAMS International Osteoporosis Foundation: International Osteoporosis Foundation IOF For more information on Calcium and Vitamin D: Calcium/Vitamin D Requirements, Recommended Foods & Supplements * Addendum Note - Tracey Hanley RN - 10/24/2024 8:30 AM EDTEncounter addended by: Tracey Hanley RN on: 10/24/2024 9:54 AM Actions taken: Flowsheet accepted documented in this encounter Plan of Treatment Upcoming Encounters Date Type Department Care Team (Late st Contact Info) Description 01/02/2025 9:45 AM EDT Appointment [facility] [address] [place] [address] Maryjane Townsend MD 1 [facility] [place] [address] 01/15/2025 8:30 AM EDT Appointment Eduardo PICHARDOA [address] [facility] [place] [address] Josephine Hensley, BLUE [address] [facility] [place] [address] 01/29/2025 8:00 AM EST Office Visit [place] [address] Diego Gutierrez MD [facility] [place] [address] 03/19/2025 11:00 AM EST Appointment [facility] [address] [place] [address] Diego Gutier[place] [address] Audi Angeles MD [address] [place] [address] 03/26/2025 8:30 AM EST Appointment [facility] [address] Josephine Hensley, BLUE [address] [facility] [place] [address] 03/26/2025 9:00 AM EST Appointment [facility] [place] [address] Tavia Carranza PA-C [address] [facility] [facility] [place] [address] 05/15/2025 2:00 PM EST Appointment [facility] [address] [place] [address] Diego Gutierrez MD [address] [place] [address] Scheduled Orders Name Type Priority Associated Diagnoses Orde r Schedule MM MAMMO DIGITAL MAYTE DIAGN BILAT Imaging Routine History of breast cancer 1 Occurrences starting 10/24/2024 until 10/24/2026 DX BONE DENSITY AXIAL SKELETON Imaging Routine Post-menopausal 1 Occurrences starting 10/24/2024 until 10/24/2025 Scheduled Referrals Name Type Priority Associated Diagnoses Order Schedule AMB REFERRAL TO [facility]IC[facility] Outpatient Referral Routine History of breast cancer Ordered: 10/24/2024 documented as of this encounter Goals Goal Patient Goal Type Associated Problems Recent Progress Patient-Stated? Author Blood Pressure < 140/90 Blood Pressure 128/83(10/24 8:19 AM EDT) No Eloisa Blanco APRN Breast Health Breast Health On track(2024 1:35 PM EST) No Kym Dudley, RN Note: Patient acknowledges understanding of new diagnosis, plan of care, available resources and how to contact Nurse Navigator with any future questions or concerns. Maintain a healthy diet, exercise regularly and maintain an ideal body weight General No No Davis RMA Stay Tobacco Free Lifestyle No No Davis RMA documented as of this encounter Results * CT LUNG CANCER SCREENING LOW DOSE (11/16/2024 2:11 PM EDT) Anatomical Region Laterality Modality Lung Computed Tomogra phy 11/16/2024 2:11 PM EDT Impressions 11/16/2024 2:41 PM EDT 1. Multiple bilateral pulmonary nodules the largest measuring 8 x 6 mm in the right middle lobe. These are likely benign. 2. Low dose CT - 6 MO. RECOMMENDATION: Low Dose CT - 6 Mo A summary letter communicating these results will be mailed to the patient's address of record. - Note: Radiology results need to be interpreted within a comprehensive clinical context. If you have questions about the radiology report, please contact the office of the ordering clinician. [email or web address] Narrative 11/16/2024 2:[address] LUNG CANCER SCREENING LOW DOSE 11/16/2024 2:11 PM CLINICAL HISTORY: Asymptomatic patient meeting NCCN high risk criteria for lung screening. F17.210-Nicotine dependence, cigarettes, eyxeocrbixuqg-VPG-39-CM. COMPARISON: CT radiation treatment planning 05/23/2024 PROCEDURE COMMENTS: Noncontrast, low-dose, multidetector CT chest per department protocol. Interactive 3-D postprocessing done by the reviewing physician on a [employer] workstation, using Maximum intensity projections (MIPS) and [employer] LUNG CAD for improved lesion detection. [employer] images archived to PACS. Dose 1 : CT DLP Total : 72.76 mGycm DLP Spiral Max : 70.23 mGycm Maximum CTDI Vol : 1.97 mGy SSDE : 1.4184 mGy SSDE Diameter : 44.7 cm SSDE Source : Lat FINDINGS: Multiple bilateral pulmonary nodules are noted the largest in the right middle lobe oblong in configuration measuring 8 x 6 mm (axial 163). A 7 x 6 mm nodule is seen in the medial right lower lobe (axial 116). The remainder of the noncalcified nodules measure 5 mm or less. There are a few calcified granulomas. No acute inflammatory process. Heart and mediastinum unremarkable. There is subpleural reticulation anteriorly in the left hemithorax likely post radiation change related to patient's known left breast cancer. Coronary artery calcification: Moderate. FOLLOW-UP CODE: Lung-RADS Category 3 : Probably Benign. Probably benign finding(s) - short term follow up suggested; includes nodules with a low likelihood of becoming a clinically active cancer. Lung-RADS Modifier N/A: No Modifier Needed Procedure Note Antoni Kc MD - 11/16/2024 CT LUNG CANCER SCREENING LOW DOSE 11/16/2024 2:11 PM CLINICAL HISTORY: Asymptomatic patient meeting NCCN high risk criteria forlung screening. F17.210-Nicotine dependence, cigarettes,dxkcvygyjbrdy-FPZ-68-CM. COMPARISON: CT radiation treatment planning 05/23/2024 PROCEDURE COMMENTS: Noncontrast, low-dose, multidetector CT chest perdepartment protocol. Interactive 3-D postprocessing done by the reviewing physicianon a [employer] workstation, using Maximum intensity projections (MIPS) and [employer] CAD for improved lesion detection. [employer] images archived to PACS. Dose 1 : CT DLP Total : 72.76 mGycm DLP Spiral Max : 70.23 mGycm Maximum CTDI Vol : 1.97 mGy SSDE : 1.4184 mGy SSDE Diameter : 44.7 cm SSDE Source : Lat FINDINGS: Multiple bilateral pulmonary nodules are noted the largest inthe right middle lobe oblong in configuration measuring 8 x 6 mm (axial 163).A 7 x 6 mm nodule is seen in the medial right lower lobe (axial 116). Theremainder of the noncalcified nodules measure 5 mm or less. There are a few calcified granulomas. No acute inflammatory process. Heart and mediastinumunremarkable. There is subpleural reticulation anteriorly in the left hemithorax likelypost radiation change related to patient's known left breast cancer. Coronary artery calcification: Moderate. FOLLOW-UP CODE: Lung-RADS Category 3 : Probably Benign. Probably benign finding(s) - short term follow up suggested; includes nodules with a low likelihood of becoming a clinically active cancer. Lung-RADS Modifier N/A: No Modifier Needed IMPRESSION: 1. Multiple bilateral pulmonary nodules the largest measuring 8 x 6 mm inthe right middle lobe. These are likely benign. 2. Low dose CT - 6 MO. RECOMMENDATION: Low Dose CT - 6 Mo A summary letter communicating these results will be mailed to thepatient's address of record. - Note: Radiology results need to be interpreted within a comprehensiveclinical context. If you have questions about the radiology report, please contactthe office of the ordering clinician. [email or web address] Josephine Hensley NP IMG CT ORDERABLES Final Result documented in this encounter Visit Diagnoses Diagnosis Invasive ductal carcinoma of left breast (HCC)- Primary Encounter for monitoring aromatase inhibitor therapy Encounter for therapeutic drug monitoring Post-menopausal Asymptomatic postmenopausal status (age-related) (natural) History of breast cancer Personal history of malignant neoplasm of breast Cigarette nicotine dependence without complication Tobacco use disorder Cigarette nicotine dependence without complication Tobacco use disorder documented in this encounter Additional Health Concerns Assessment Noted Time A fall risk assessment has been complete d for the patient 01/25/2024 7:58 AM EST documented as of this encounter Care Teams Weed Sprayer Relationship Specialty Start Date End Date Diego Gutierrez MD [employer] [address] PCP - General 04/11/09 Maryjane Townsend MD [address] [place] [address] [facility] [place], [place] [id number] Radiation Oncologist Radiology-Radiation Oncology 04/24/24 documented as of this encounter
--- OUTSIDE RECORDS SUMMARY | 2024-11-16 13:59 | XMS_ITS | Encounter Summary ---
Author Organization [place] [address] Care Team Providers Care Boat And Plant Utility Supervisor Name Role Phone Diego Gutierrez MD Primary Care Provider [phone] Maryjane Townsend MD Unavailable [phone] Reason for Referral * MRI/CAT Scan (Routine) - Authorization Not Needed Specialty Diagnoses / Procedures Referred By Contac t Referred To Contact Radiology Diagnoses Cigarette nicotine dependence without complication Procedures CT LUNG CANCER SCREENING LOW DOSE Josephine Hensley NP [address] [place] [address] Phone: tel: fax: Referral ID Status Reason Start Date Expiration Date Visits Requested Visits Authorized [id number] Authorization Not Needed 10/24/2024 01/24/2026 1 1 Reason for Visit * MRI/CAT Scan (Routine) - Authorization Not Needed Specialty Diagnoses / Procedures Referred By Contac t Referred To Contact Radiology Diagnoses Cigarette nicotine dependence without complication Procedures CT LUNG CANCER SCREENING LOW DOSE Josephine Hensley NP [address] [facility] [place] [address] Phone: tel: fax: Referral ID Status Reason Start Date Expiration Date Visits Requested Visits Authorized [id number] Authorization Not Needed 10/24/2024 01/24/2026 1 1 Encounter Details Date Type Department Care Team (Latest Contact Info) Description 11/16/2024 1:59 PM EDT - 11/16/2024 11:59 PM EDT Hospital Encounter [facility] [address] [place] [address] Josephine Hensley, BLUE [address] [facility] [place] [address] Cigarette nicotine dependence without complication Discharge Disposition: Home or Self Care Social History Tobacco Use Types Packs/Day Years Used Date Smoking Tobacco: Every Day Cigarettes 1.5 35.2 Started: 10/21/1971; Last attempted to quit: 03/03/2006 Smokeless Tobacco: Never Comments:States a about 14 c igarettes per week Alcohol Use Standard Drinks/Week Comments No 0 (1 standard drink = 0.6 oz pur e alcohol) B1300 Health Literacy Answer Date Recor ded How often do you need to hav e someone help you when you read instructions, pamphlets, or other written material from your doctor or pharmacy? Never 03/09/2024 [facility] Utilities Answer Date Recorded In the past 12 months has e electric, gas, oil, or water company [...] relatives? Three times a week 03/09/2024 Attends [employer] Not on file 03/09 Active Member [...] you are drinking? Patient does not drink 12/19/202 4 Q3: How often do you have si x or more drinks on one occasion? Never 03/09/2024 Overall Financial Resource Strain (CARDIA) Answe r Date Recorded How hard is it for you to pa y for the very basics like food, housing, medical care, and heating? Not hard at all 03/09/2024 PHQ-2 Answer Date Recorded PHQ-2 Total Score 0 03/09/2024 [facility] - Occupational Stress Questionnaire Answer Date Recorded [...] any time in the past 12 m [facility], were you homeless or living in a care home (including now)? No 03/09/2024 Sexually Active Control Partners Comments Yes Post-menopausal Male Comments No Sex and Gender Information Value Date Recorded Sex Assigned at Not on file Legal Sex Female 3:12 PM EDT Gender Identity Not on file Sexual Orientation Not on file documented as of this encounter Functional Status * Is the [...] other skin folds. 80 g 3 01/25/2024 polyethylene glycol (GOLYTELY) 236-22.74-6.74 -5.86 gram Oral Recon SolnIndications:Enco unter for colonoscopy due to history of colonic polyp Take 4,000 mL by mouth once for 1 dose. 4000 mL 11/21/2024 5 documented as of this encounter Discharge Disposition Disposition Code Departure Means Destination Home or Self Care documented in this encounter Plan of Treatment Upcoming Encounters Date Type Department Care Team (Late st Contact Info) Description 01/02/2025 9:45 AM EDT Appointment [facility] [address] [facility] [address] [place] [address] Maryjane Townsend MD [address] [facility] [place] [address] 01/15/2025 8:30 AM EDT Appointment Eduardo VO [address] [facility] [place] [address] Josephine Hensley NP [address] [place] [address] 01/29/2025 8:00 AM EST Office Visit [facility] [place] [address] [place] [address] Diego Gutierrez MD [address] [place] [address] 03/19/2025 11:00 AM EST Appointment [facility] [address] [place] [address] Diego Gutierrez MD [address] [place] [address] Audi Angeles MD [address] [place] [address] 03/26/2025 8:[address] [facility] [place] [address] Josephine Hensley, BLUE [address] [place] [address] 03/26/2025 9:00 AM EST Appointment [facility]'s [facility] [place] [address] Tavia Carranza PA-C [address] [place] [facility] [place] [address] 05/15/2025 2:00 PM EST Appointment [facility] [address] [place] [place] [address] Diego Gutierrez MD [address] [place] [address] documented as of this encounter Goals Goal Patient Goal Type Associated Problems Recent Progress Patient-Stated? Author Blood Pressure < 140/90 Blood Pressure 128/83(10/24 8:19 AM EDT) No Eloisa Blanco APRN Breast Health Breast Health On track(2024 1:35 PM EST) No Kym Dudley RN Note: Patient acknowledges understanding of new diagnosis, plan of care, available resources and how to contact Nurse Navigator with any future questions or concerns. Maintain a healthy diet, exercise regularly and maintain an ideal body weight General No No Davis RMA Stay Tobacco Free Lifestyle No No Davis RMA documented as of this encounter Procedures Procedure Name Priority Date/Time Associated Diagnosis Comments CT LUNG CANCER SCREENING LOW DOSE Routine 11/16/2024 2:11 PM EDT Cigarette nicotine dependence without complication documented in this encounter Results * CT LUNG CANCER [...] contact the office of the ordering clinician. [email or web address] Narrative 11/16/2024 2:[address] LUNG CANCER SCREENING LOW DOSE 11/16/2024 2:11 PM CLINICAL HISTORY: Asymptomatic patient meeting NCCN high risk criteria for lung screening. F17.210-Nicotine dependence, cigarettes, xxkzbwxtwfaws-KCB-73-CM. COMPARISON: CT radiation treatment planning 05/23/2024 PROCEDURE COMMENTS: Noncontrast, low-dose, multidetector CT chest per department protocol. Interactive 3-D postprocessing done by the reviewing physician on a [employer] workstation, using Maximum intensity projections (MIPS) and [employer] LUNG CAD for improved lesion detection. Uman[employer]or [...] high risk criteria forlung screening. F17.210-Nicotine dependence, cigarettes,dhetenhvkwgry-UWT-61-CM. COMPARISON: CT radiation treatment planning 05/23/2024 PROCEDURE COMMENTS: Noncontrast, low-dose, multidetector CT chest perdepartment protocol. Interactive 3-D postprocessing done by the reviewing physicianon a [employer] workstation, using Maximum intensity projections (MIPS) and [employer]UNG CAD for improved lesion detection. [employer] images [...] please contactthe office of the ordering clinician. [email or web address] Josephine Hensley NP IMG CT ORDERABLES Final Result documented in this encounter Visit Diagnoses Diagnosis Cigarette nicotine dependence without complication Tobacco use disorder documented in this encounter Additional Health Concerns Assessment Noted Time A fall risk assessment has been complete d for the patient 01/25/2024 7:58 AM EST documented as of this encounter Care Teams Boat And Plant Utility Supervisor Relationship Specialty Start Date End Date Diego Gutierrez MD [address] [place] [id number] PCP - General 04/11/09 Maryjane Townsend MD [address] [place] [address] [place] [address] Radiation Oncologist Radiology-Radiation Oncology 04/24/24 documented as of this encounter
--- NOTE | 2024-11-28 08:37 | XR_ITS ---
FINAL REPORT CLINICAL HISTORY: left knee pain..fall FINDINGS: AP, oblique, and lateral views of the left knee were obtained. There is no acute fracture or dislocation. There is tricompartmental degenerative disease. A small joint effusion is noted. Soft tissues are otherwise normal. IMPRESSION: No acute osseous abnormality of the left knee. 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 Reviewed, Interpreted and Dictated by Fina [place] MD Transcribed by Nellie Johnson Authenticated and [facility]
--- OUTSIDE RECORDS SUMMARY | 2024-11-28 08:43 | XMS_ITS | Clinical Summary ---
Author Organization [facility] Address [address] [place] [address] Phone Care Team Providers Care Finisher Operator Name Role Phone Diego Gutierrez MD Primary Care Provider [phone] Maryjane Townsend MD Unavailable [phone] Allergies No known active allergies Medications aspirin (ASPIRIN) 81 mg Oral Tablet, ChewableIndication s:Family history of cardiovascular disease Take 1 Tab by mouth daily. 30 Tab 11 9 Active losartan (COZAAR) 100 mg Oral TabletIndications: Body aches Take 1 Tablet by mouth once daily. 90 Tablet 3 4 Active triamcinolone (KENALOG) 0.1 % Top CreamIndications:N ummular eczematous dermatitis Apply topically 2 times daily. Apply twice daily to affected areas. Apply two weeks on, one week off, repeat. Stop when resolved. - Do not apply to face, armpits, groin, or other skin folds. 80 g 3 4 Active LEVOthyroxine (SYNTHROID) 75 mcg Oral Tablet Take 1 Tablet by mouth daily. 100 Tablet 2 4 Active cyanocobalamin 1,000 mcg Oral Tablet Take 1,000 mcg by mouth daily. Active anastrozole (ARIMIDEX) 1 mg Oral TabletIndications: Invasive ductal carcinoma of left breast (HCC) Take 1 Tablet by mouth daily. Begin taking Arimidex when radiation is complete 90 Tablet 3 5 Active FLUoxetine (PROZAC) 20 mg Oral CapsuleIndications :Mood disorder Take 1 Capsule by mouth daily. 90 Capsule 1 5 Active emollient combination no.63 (MIADERM) Top Lotion Apply topically 3 times daily as needed. Active mineral oil-hydrophilic petrolatum (AQUAPHOR) Top Ointment Apply topically as needed (apply sparingly to skin in radiation treatment field). Active atorvastatin (LIPITOR) 40 mg Oral Tablet Take 1 Tablet by mouth once daily. 100 Tablet 1 5 Active oxybutynin (DITROPAN-XL) 10 mg Oral Tablet Extended Rel 24 hrIndications:OAB (overactive bladder) Take 1 Tablet by mouth daily. 30 Tablet 5 5 Active metoprolol succinate (TOPROL-XL) 25 mg Oral Tablet Sustained Release 24 hrIndications:NSVT (nonsustained ventricular tachycardia) (HCC) Take 1 Tablet by mouth daily. 90 Tablet 3 5 Active polyethylene glycol (GOLYTELY) 236-22.74-6.74 -5.86 gram Oral Recon SolnIndications:En counter for colonoscopy due to history of colonic polyp Take 4,000 mL by mouth once for 1 dose. 4000 mL 5 025 Active Problems Patient Care Coordination No te Formatting of this note migh t be different from the original. [facility] - Fidel Huang MD Interventional Pain Protocol: Adam report completed (EVERY 3 MONTHS) ( 12/24/20 ) Pharmacy: [facility] [place] [phone] [facility] [phone] Problem Noted Date Diagnosed Date Implantable loop recorder present 05/03/2024 Overview (05/03/2024): BSI Lux ILR Syncope 05/03/2024 Carcinoma of upper-outer gisela drant of left breast in female, estrogen receptor positive 03/01/2024 Cancer Staging:Clinical stage from 03/20/2024:Stage IA(cT1c, cN0, cM0, G2, ER+, RI-, HER2-) - Signed by Timothy Rosas MD on 03/20/2024 Pathologic:Stage IA(pT1c, pN0(sn), cM0, G3, ER+, RI-, HER2-) - Unsigned Assessment & Plan (04/18/2024 8:08 PM EST): Orders: anastrozole (ARIMIDEX) 1 mg Oral Tablet; Take 1 Tablet by mouth daily. Begin taking Arimidex when radiation is complete AMB REFERRAL TO RADIATION ONCOLOGY Assessment & Plan (04/17/2024 2:43 PM EST): Orders: anastrozole (ARIMIDEX) 1 mg Oral Tablet; Take 1 Tablet by mouth daily. Begin taking Arimidex when radiation is complete AMB REFERRAL TO RADIATION ONCOLOGY Assessment & Plan (03/20/2024 4:40 PM EST): Orders: MM MAMMO NEEDLE LOCALIZATION LEFT; Future Assessment & Plan (03/20/2024 11:25 AM EST): Orders: MM MAMMO NEEDLE LOCALIZATION LEFT; Future Carotid bruit 01/25/2024 Daytime somnolence 01/25/2024 History of loop recorder 01/25/2024 Numbness and tingling of right arm 01/25/2024 Snoring 01/25/2024 Stenosis of carotid artery 01/25/2024 Weight gain 01/25/2024 Senile purpura 01/26/2023 Assessment & Plan (01/25/2024 8:40 AM EST): On low dose ASA. No new sx of bleeding concerns Orders: CBC WITH DIFF; Future CBC WITH DIFF Mixed hyperlipidemia 06/11/2022 Assessment & Plan (01/25/2024 8:40 AM EST): On statin Orders: LIPID PANEL REFLEX; Future LIPID PANEL REFLEX Hx of supraventricular tachycardia 06/11/2022 Overview (06/18/2022): Preserved EF, mild CAD symptomatic, recommend BB and Follow-up with EP outpt. Avoid stimulants, stop MJ and Caffeine. Marijuana dependence 01/21/2022 Overview (06/18/2022): Smokes 5 blunts per day for 42 years Encouraged cessation and/or switch to CBD Assessment & Plan (08/31/2024 11:50 AM EDT): -encouraged cessation Assessment & Plan (01/25/2024 8:40 AM EST): Encouraged cessation Assessment & Plan (12/17/2022 2:06 PM EDT): Discussed. She has no intention of changing at this time. Centrilobular emphysema 01/21/2022 Overview (01/21/2022): Former smoker for cigs, quit 2005. Heavy MJ use for 42 years, encouraged cessation - recommend using CBD oil Assessment & Plan (01/25/2024 8:40 AM EST): Smoking MJ, doesn't have daily symptoms. Doesn't use inhalers. Encouraged smoking cessation. Atherosclerosis of aorta 01/20/2022 Overview (01/21/2022): 10/12/20 CT Lung On ASA and statin. Assessment & Plan (01/25/2024 8:40 AM EST): On ASA and statin No new sx of ischemia Encouraged smoking cessation Orders: LIPID PANEL REFLEX; Future LIPID PANEL REFLEX Assessment & Plan (12/17/2022 2:07 PM EDT): Continue cardiovascular risk factor modification. HSV-2 (herpes simplex virus 2) infection 022 Small vessel disease 07/10/2021 Overview (01/21/2022): Cerebral with hx of alteration of awareness On ASA and Statin, continue same. Assessment & Plan (01/25/2024 8:40 AM EST): On ASA and Statin. Hx fo TIA. No new sx of ischemia Orders: LIPID PANEL REFLEX; Future LIPID PANEL REFLEX Assessment & Plan (12/17/2022 2:08 PM EDT): Noted on CT/MRI. Continue risk factor modification. Bilateral carotid artery stenosis 07/10/2021 Overview (07/10/2021): 1-39% stenosis bilaterally On ASA, Statin and ARB Assessment & Plan (01/21/2022 8:36 AM EDT): No new symptoms. Transient alteration of awareness 07/06/2021 Overview (07/10/2021): MRI with small vessel disease otherwise no acute findings. Mild carotid artery disease. Assessment & Plan (01/25/2024 8:40 AM EST): Has had extensive neuro and cardiology workup. Normal EEG No sig ishcemic findings Does smoke MJ and wonder if that could be contributing? Recommend she continue with cardiology and neurology mgmt. Assessment & Plan (07/10/2021 4:44 PM EDT): Question if maybe stress or hypertensive urgency was a contributing factor. Recommend monitor blood pressure and take clonidine if over 160/90 Leukocytosis 07/06/2021 LBBB (left bundle branch block) 05/07/2021 Hypothyroidism 02/05/2021 Assessment & Plan (01/25/2024 8:40 AM EST): On synthroid Orders: TSH REFLEX; Future TSH REFLEX Assessment & Plan (12/17/2022 1:17 PM EDT): Check labs today. 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 Mood disorder 08/06/2017 Overview (01/21/2022): lexapro ineffective Improvement on prozac, continue same. Assessment & Plan (01/25/2024 8:40 AM EST): Stable on prozac No indication for medication adjustment at this time History of HPV infection 02/16/2012 Urge incontinence 01/27/2012 Hypercholesterolemia 10/09/2010 Overview (08/17/2018): On statin. Recheck labs. Assessment & Plan (01/25/2024 8:40 AM EST): On statin Orders: LIPID PANEL REFLEX; Future LIPID PANEL REFLEX Migraines Anemia Resolved Problems Problem Noted Date Diagnosed Date Resolved Date Brain atrophy 12/17/2022 12/17/2022 Syncope 06/12/2022 01/25/2024 Hypertensive urgency 07/06/2021 023 Overview (07/10/2021): On losartan Recommend clonidine PRN Suspect stress is a contributing factor Mild carotid disease Normal stress/echo and lung ct. Bronchitis 05/07/2021 01/25/2024 Shortness of breath 05/05/2021 01/22/20 22 Assessment & Plan (05/05/2021 12:12 PM EST): Echo last year was normal. CXR normal. Has cardiology follow up next week for loop recorer implantation. Bradycardia 02/05/2021 01/25/2024 Palpitations 01/30/2020 01/25/2024 Assessment & Plan (01/30/2020 9:00 AM EST): At this point this appears to be benign. It may have been related to the hypoglycemic episode. She is advised if this reoccurs or she gets any dizziness lightheadedness then we need to be informed so we can check. Would probably at that point recommend a Holter monitor. Also advised to call back if she develops any chest pain. Post-menopause bleeding 01/27/201203/22 Gout 10/07/2010 History of gallstones 2018 Recurrent biliary colic 03/22 Encounters Date Type Department Care Team Description 11/23/2024 Telephone [facility] ATTN: Appointments in this department are performed at various locations in the community on our Cardiovascular mobile health unit. You can look online to verify your site or call [phone] [address] Bea Jackson, RN Results; Schedule Appointment 11/21/2024 Telephone [facility] [address], [address] [place] [address] Lidia Weinstein, RMA Colonoscopy 11/17/2024 Orders Only [facility] [address] [place] [id number] Diego Gutierrez MD Lung nodule (Primary Dx) 11/16/2024 1:59 PM EDT - 11/16/2024 11:59 PM EDT Hospital Encounter [facility] [place] [facility] [address] [place] [id number] Josephine Hensley NP Cigarette nicotine dependence without complication Discharge Disposition: Home or Self Care 11/15/2024 Telephone [facility] [address] [place] [address] Lidia Weinstein, RMA Colonoscopy 11/15/2024 Telephone [facility] [place], [place] [id number] Diana Parsons, Clerical Staff Integrative Oncology Referral 11/09/2024 Patient Outreach [facility] [address] [place] [address] Diego Gutierrez MD Central Order Completion Outreach (LDCT) 10/25/2024 Telephone [place] [address] Diana Parsons, Clerical Staff Integrative Oncology Referral 10/24/2024 7:58 AM EDT - 10/24/2024 11:59 PM EDT Hospital Encounter [facility] [place] [address] Josephine Hensley, BLUE Invasive ductal carcinoma of left breast (HCC) (Primary Dx); Encounter for monitoring aromatase inhibitor therapy; Post-menopausal; History of breast cancer; Cigarette nicotine dependence without complication Discharge Disposition: Home or Self Care 10/24/2024 Telephone [facility] [place] [address] Naomi Amador, Clerical Staff Appointment Needed 09/05/2024 Results Follow-Up [address] [place] [address] BalmorheaSharmaine brewster, PIPELINE INSPECTOR URINE CULTURE (NO STAIN) 08/31/2024 10:15 AM EDT Office Visit [address] [place] [address] Isaías, Sharmaine, PIPELINE INSPECTOR Acute cystitis with hematuria (Primary Dx); OAB (overactive bladder); NSVT (nonsustained ventricular tachycardia) (HCC); Marijuana dependence (HCC) from Last 3 Months Immunizations Immunization Administration Dates Next Due Moderna SARS-CoV-2 Booster V accine 18+ Yrs (Light Blue Border) 02/21/2021 Pneumococcal Polysaccharide 23 Valent 02/06/2021 (Deferred: Patient Refused) Tdap 11/20/2012 Surgical History Surgery Date Site/Laterality Comments APPENDECTOMY UPPER GASTROINTESTINAL ENDOSCOPY COLONOSCOPY 11/06/2010 repeat 10 years OVARIAN CYST REMOVAL 03/22/1970 laparotomy DILATION AND CURETTAGE OF UTERUS 02/09/2012 Uterus/N/A DILATION AND CURETTAGE HYSTEROSCOPY ; Surgeon: Ciaran Edwards MD; Location: [facility] MA[facility] OR; Service: Gynecology KNEE ARTHROSCOPY 05/10/2015 Left LEFT KNEE EXAM UNDER ANESTHESIA ARTHROSCOPY PARTIAL MEDIAL MENISCECTOMY PARTIAL LATERAL MENISCECTOMY CHONDROPLASTY INTRA-ARTICULAR INJECTION ; Surgeon: Devyn Ford MD; Location: [facility]; Service: Orthopedics KNEE JOINT MANIPULATION 05/10/2015 Left Surgeon: Devyn Ford MD; Location: [facility]; Service: Orthopedics CHOLECYSTECTOMY, LAPAROSCOPIC 05/28/2016 N/A LAPAROSCOPIC CHOLECYSTECTOMY, LYSIS OF ADHESIONS; Surgeon: Oz Kuhn MD; Location: [facility] MAIN OR; Service: General CERVIX BIOPSY 05/13/2018 N/A COLD KNIFE CONE; Surgeon: Hiwot Aleman MD; Location: [facility]; Service: Gynecology MM US BREAST BIOPSY LEFT 02/28/2024 Left MM US BREAST BIOPSY LEFT 02/28/2024 Left MM US BREAST BIOPSY LEFT 02/28/2024 Timothy Schneider MD [facility] US GUIDED NEEDLE PLACEMENT 04/04/2024 Left 2:00 o'clock BREAST LUMPECTOMY 04/04/2024 Left Left breast mammogram guided segmentectomy, sentinel lymph node dissection; Surgeon: Timothy Rosas MD; Location: [facility]; Service: General Medical History Medical History Date Comments Depression Screening mammogram normal Anesthesia complication slow to wake up Arthritis all over Overactive bladder Hyperlipidemia Invasive ductal carcinoma of left breast (HCC) 1 05/02/2023 Hypertension Thyroid disease Eczema Family History Medical History Relation Name Comments Prostate Cancer Brother 1 stage 4, met astatic Prostate Cancer Father treated Breast Cancer Maternal Aunt Heart Disease Mother Breast Cancer Niece Negative Ambry CancerNext (34 genes) 2021 Anesth Problems Neg Hx Relation Name Status Comments Brother 1 (Age 79) Brother 2 Alive Brother 3 Alive Father (Age 75) d.heart fa ilure Maternal Aunt (Age 60-70) Maternal Grandfather Maternal Grandmother Maternal Uncle Mother (Age 89) Niece Alive Paternal Grandfather Paternal Grandmother Paternal Uncle Alive Son 1 (Age 18) d.suicide Son 2 Alive Social History Tobacco Use Types Packs/Day Years [...] from your doctor or pharmacy? Never 03/09/2024 [facility] Utilities Answer Date Recorded In the [...] relatives? Three times a week 03/09/2024 Attends Shinto Services Not on file 03/09 Active Member [...] Date Recorded PHQ-2 Total Score 0 03/09/2024 [facility] - Occupational Stress [...] any time in the past 12 m [facility], were you homeless or living in a fpc (including now)? No 03/09/2024 Sexually Active Control Partners Comments Yes Post-menopausal Male Comments No Sex and Gender Information Value Date Recorded Sex Assigned at Not on file Legal Sex Female 3:12 PM EDT Gender Identity Not on file Sexual Orientation Not on file Obstetrics History Para Term AB IAB SAB Ectopic Multiple Livin g Live Births 2 2 2 2 2 Date Outcome GA Total Labor Labor/2nd/3rd Weight Sex Type Anes PTL Cecily A1 A5 Name Clin Term Vag-S pont Living Term Vag-S pont Living Last Filed Vital Signs Vital Sign Reading Time Taken Comments Blood Pressure 128/83 10/24/2024 8:19 AM EDT Pulse 65 10/24/2024 8:19 AM EDT Temperature 36.2 C (97.1 F) 10/24/2024 8:19 AM EDT Respiratory Rate 18 08/31/2024 10:0 3 AM EDT Oxygen Saturation 95% 08/31/2024 10: 03 AM EDT Inhaled Oxygen Concentration - - Weight 68.9 kg (151 lb 14.4 oz) 10/24/2024 8:19 AM EDT Height 170.2 cm (5' 7 ) 10/24/2024 8:19 AM EDT Body Mass Index 23.79 10/24/2024 8:19 AM EDT Plan of Treatment Upcoming Encounters Date Type Department Care Team (Late st Contact Info) Description 01/02/2025 9:45 AM EDT Appointment [facility] [address] [place] [address] Maryjane Townsend MD [address] [place] [address] 01/15/2025 8:30 AM EDT Appointment [place] [facility] [place] [address] Josephine Hensley, CALL MANAGER [address] [place] [address] 01/29/2025 8:00 AM EST Office Visit [facility] [place] [address] [place] [address] Diego Gutierrez MD [address] [place] [address] 03/19/2025 11:00 AM EST Appointment [facility] [address] [place] [address] Diego Gutierrez MD [address] [place] [address] Audi Angeles MD [address] [place] [address] 03/26/2025 8:30 AM EST Appointment [facility] [place] [address] Josephine Hensley, BLUE [address] [place] [place] [address] 03/26/2025 9:00 AM EST Appointment [facility] [place] [address] Tavia Carranza PA-C [address] [facility] [address] [place] [address] 05/15/2025 2:00 PM EST Appointment [facility] [address] [place] [address] Diego Gutierrez MD [address] [place] [address] Health Maintenance Due Date Last Done Comments Pneumococcal Vaccine 50+ (1 of 2 - PCV) 11/25/1974 Cologuard 11/25/2000 FIT 11/25/2000 Sigmoidoscopy 11/25/2000 Virtual Colonography 11/25/2000 Zoster (1 of 2) 11/25/2005 RSV or 60+ (1 - Risk 60-74 years 1-dose series) 2015 DTaP/TDaP/Td (2 - Td or Tdap) 11/20/2022 11/20/2012 COVID-19 Vaccine ( season) 2024 02/21/2021, 06/21/2020, 05/24/2020 Influenza Vaccine (#1) 2024 7 (Declined), 01/25/2015 (Declined), 03/01/2014 (Declined) Wellness Exam Medicare 01/25/2025 01/25/2024, 2022 Colon Cancer Screening 02/15/2025 Colonoscopy 02/15/2025 02/16/2024, 10/20, 10/27/2010 (Previously completed) Low Dose Lung Cancer Screening 11/16/2025 11/16/2024, 10/12/2020, 10/06/2019 Breast Cancer Screening 02/17/2026 02/18/20 24, 02/01/2024, 04/23/2021, Additional history exists Hepatitis C Screening Completed 03/12/2017, 017 Bone Density Screening Completed 01/11/2023 Hepatitis B Vaccine Aged Out No longe r eligible based on patient's age to complete this topic Meningococcal B Vaccine Aged Out No l onger eligible based on patient's age to complete this topic Goals Goal Patient Goal Type Associated Problems Recent Progress Patient-Stated? Author Blood Pressure < 140/90 Blood Pressure 128/83(10/24 8:19 AM EDT) No Eloisa Blanco APRN Breast [facility] Breast Health On track(2024 1:35 PM EST) No Kym Dudley RN Note: Patient acknowledges understanding of new diagnosis, plan of care, available resources and how to contact Nurse Navigator with any future questions or concerns. Maintain a healthy diet, exercise regularly and maintain an ideal body weight General No No Davis RMA Stay Tobacco Free Lifestyle No No Davis RMA Medical Devices Explanted Type Area Ent Surgeon Device Identifier Shelf Expiration Date Model / Serial / Lot Lux Dx Loop Recorder Explanted:Qty: 1 on 05/12/2024 by Sathya Miles MD at [facility] [id number] / / Procedures Procedure Name Priority Date/Time Associated Diagnosis Comments CT LUNG CANCER SCREENING LOW DOSE Routine 11/16/2024 2:11 PM EDT Cigarette nicotine dependence without complication URINE CULTURE (NO STAIN) Routine 08/31/2024 10:40 AM EDT Acute cystitis with hematuria SEP URINALYSIS POC Routine 08/31/2024 10 :19 AM EDT Acute cystitis with hematuria MM MAMMO DIGITAL MAYTE DIAGN LEFT Routine 02/18/2024 7:34 AM EST Abnormal mammogram of left breast COLONOSCOPY Routine 02/16/2024 12:00 PM EST Screening for colon cancer DX BONE DENSITY AXIAL SKELETON Routine 01/11/2023 8:06 AM EDT Post-menopausal HCV ANTIBODY SCREEN W/ REFLEX Routine 03/12/2017 8:34 AM EST Need for hepatitis C screening test from Last 3 Months or Most Recently Relevant to Health Maintenance Results * CT LUNG CANCER SCREENING LOW [...] contact the office of the ordering clinician. [email or web address] Narrative 11/16/2024 2:[address] LUNG CANCER SCREENING LOW DOSE 11/16/2024 2:11 PM CLINICAL HISTORY: Asymptomatic patient meeting NCCN high risk criteria for lung screening. F17.210-Nicotine dependence, cigarettes, [id number]. COMPARISON: CT radiation treatment planning 05/23/2024 PROCEDURE COMMENTS: Noncontrast, low-dose, multidetector CT chest per department protocol. Interactive 3-D postprocessing done by the reviewing physician on a Jobaline workstation, using Maximum intensity projections (MIPS) and Jobaline LUNG CAD for improved lesion detection. Umanzor [...] high risk criteria forlung screening. F17.210-Nicotine dependence, cigarettes,[id number]. COMPARISON: CT radiation treatment planning 05/23/2024 PROCEDURE COMMENTS: Noncontrast, low-dose, multidetector CT chest perdepartment protocol. Interactive 3-D postprocessing done by the reviewing physicianon a Jobaline workstation, using Maximum intensity projections (MIPS) and CASTT CAD for improved lesion detection. Umanzor images [...] please contactthe office of the ordering clinician. [email or web address] Josephine Hensley NP IM CT ORDERABLES Final Result * (ABNORMAL) URINE CULTURE (NO STAIN) (08/31/2024 10:40 AM EDT) Culture Positive Growth(A) 09/02/2024 10:23 AM EDT PREFERRED LAB [facility], [facility] Culture 100,000 CFU/mL Escherichia coli SUSCEPTIBI LITY RESULT 09/02/2024 10:23 AM EDT [facility] Urine STRUCTURE OF URINARY TRACT PROPER / Unknown 08/31/2024 10:40 AM EDT 08/31/2024 10:40 AM EDT Narrative Organism Antibiotic Method Susceptibility Escherichia coli Amikacin SUSCEPTIBILITY RESULT Escherichia coli Amoxicillin/Clavulanate SUSCEPTIBILIT Y RESULT <=8/4 ug/mL: Susceptible Escherichia coli Ampicillin SUSCEPTIBILITY RESULT <=8 ug/mL: Susceptible Escherichia coli Ampicillin/Sulbactam SUSCEPTIBILITY R ESULT <=4/2 ug/mL: Susceptible Escherichia coli Aztreonam SUSCEPTIBILITY RESULT <=4 ug/mL: Susceptible Escherichia coli Cefazolin SUSCEPTIBILITY RESULT <=2 ug/mL: Susceptible Escherichia coli Cefepime SUSCEPTIBILITY RESULT Escherichia coli Cefotaxime SUSCEPTIBILITY RESULT Escherichia coli Cefoxitin SUSCEPTIBILITY RESULT <=8 ug/mL: Susceptible Escherichia coli Ceftazidime SUSCEPTIBILITY RESULT Escherichia coli Ceftazidime/Avibactam SUSCEPTIBILITY RESULT Escherichia coli Ceftolozane/Tazobactam SUSCEPTIBILITY RESULT Escherichia coli Ceftriaxone SUSCEPTIBILITY RESULT Escherichia coli Cefuroxime SUSCEPTIBILITY RESULT Escherichia coli Ciprofloxacin SUSCEPTIBILITY RESULT <=0.25 ug/mL: Susceptible Escherichia coli Ertapenem SUSCEPTIBILITY RESULT <=0.5 ug/mL: Susceptible Escherichia coli Gentamicin SUSCEPTIBILITY RESULT <=2 ug/mL: Susceptible Escherichia coli Imipenem SUSCEPTIBILITY RESULT <=1 ug/mL: Susceptible Escherichia coli Levofloxacin SUSCEPTIBILITY RESULT <=0.5 ug/mL: Susceptible Escherichia coli Meropenem SUSCEPTIBILITY RESULT <=1 ug/mL: Susceptible Escherichia coli Meropenem/Vaborbactam SUSCEPTIBILITY RESULT Escherichia coli Minocycline SUSCEPTIBILITY RESULT Escherichia coli Moxifloxacin SUSCEPTIBILITY RESULT Escherichia coli Nitrofurantoin SUSCEPTIBILITY RESULT <=32 ug/mL: Susceptible Escherichia coli Piperacillin/Tazobactam SUSCEPTIBILIT Y RESULT <=8 ug/mL: Susceptible Escherichia coli Tetracycline SUSCEPTIBILITY RESULT <=4 ug/mL: Susceptible Escherichia coli Tigecycline SUSCEPTIBILITY RESULT Escherichia coli Tobramycin SUSCEPTIBILITY RESULT <=2 ug/mL: Susceptible Escherichia coli Trimethoprim/Sulfame tho xazole SUSCEPTIBILITY RESULT <=0.5/9.5 ug/mL: Susceptible us Sharmaine Zelayaing PIPELINE INSPECTOR MICROBIOLOGY - GENERAL ORDJeremi FLORES Final Result PREFERRED LAB [facility] [address] [facility] , [address] [place] [phone] * (ABNORMAL) SEP URINALYSIS POC (08/31/2024 10:19 AM EDT) UA Color POC Yellow Color 08/31/2024 10:21 AM EDT [facility] [place] UA Appear POC Clear Clear 08/31/2024 10:21 AM EDT [facility] [place] UA Gluc POC Negative Negative mg/dL 08/31/2024 10:21 AM EDT [facility] [place] [facility] Bili POC Negative Negative 08/31/2024 10:21 AM EDT [facility] [place] [facility]A Ketones POC Negative Negative mg/dL 08/31/2024 10:21 AM EDT [facility] [place] [facility]A SG POC 1.020 1.001 - 1.035 no units 08/31/2024 10:21 AM EDT [facility] [place] [facility]A Blood POC Small(A) Negative 08/31/2024 10:21 AM EDT [facility] [place] [facility] pH POC 6.0 5.0 - 8.0 pH 08/31/2024 10:21 AM EDT [facility] [place] [facility] Protein POC Negative Negative mg/dL 08/31/2024 10:21 AM EDT [facility] [place] [facility]A Urobilinogen POC 0.2 0.2, 1.0 08/31/2024 10:21 AM EDT [facility] [place] [facility]A Nitrite POC Negative Negative 08/31/2024 10:21 AM EDT [place] [place] UA Leuk Est POC Moderate(A) Negative 09/01/19 10:21 AM EDT [place] [place] Urine STRUCTURE OF URINARY TRACT PROPER / Unknown 08/31/2024 10:19 AM EDT 08/31/2024 10:21 AM EDT us Sharmaine Metz PIPELINE INSPECTOR POINT OF CARE TEST ORDERABL ES Final Result [place] [address] [place], [place] [address] * (ABNORMAL) MM MAMMO DIGITAL MAYTE DIAGN LEFT (02/18/2024 7:34 AM EST) Anatomical Region Laterality Modality Breast Left Mammography 02/18/2024 7:34 AM EST Impressions 02/18/2024 8:38 AM EST Incomplete: Need additional imaging evaluation ([id number]) ASSESSMENT TEXT: RECOMMENDATION: Additional Imaging Breast Ultrasound Left No additional recommendation No additional laterality COMMENTS: Targeted ultrasound will be performed same day and will be reported separately. Narrative 02/18/2024 8:38 AM EST EXAM: MM MAMMO DIGITAL MAYTE DIAGN LEFT EXAM DATE: 02/18/2024 7:34 AM INDICATION: R92.8-Other abnormal and inconclusive findings on diagnostic imaging of [id number] The patient is a 68-year-old female who presents as a callback from screening mammogram for a mass in the left breast. COMPARISON STUDIES: Compared with prior studies the most recent being 02/01/2024 MM MAMMO DIGITAL MAYTE SCREEN BILAT at [facility] 04/23/2021 MM MAMMO DIGITAL MAYTE DIAGN BILAT at [facility] 04/30/2020 MM MAMMO DIGITAL MAYTE DIAGN LEFT at [facility] TISSUE DENSITY: There are scattered areas of fibroglandular density. FINDINGS: Additional views of the left breast demonstrate a persistent oval mass with partially-obscured borders in the upper outer quadrant with a few punctate calcifications. Targeted ultrasound will be performed for further evaluation. There is no evidence of architectural distortion in the left breast Procedure Note Davide Rivera MD - 02/18/2024 EXAM: MM MAMMO DIGITAL MAYTE DIAGN LEFT EXAM DATE: 02/18/2024 7:34 AM INDICATION: R92.8-Other abnormal and inconclusive findings on diagnosticimaging of [id number] The patient is a 68-year-old female who presents as a callback fromscreening mammogram for a mass in the left breast. COMPARISON STUDIES: Compared with prior studies the most recent being 02/01/2024 MM MAMMO DIGITAL MAYTE SCREEN BILAT at [facility] 04/23/2021 MM MAMMO DIGITAL MAYTE DIAGN BILAT at [facility] 04/30/2020 MM MAMMO DIGITAL MAYTE DIAGN LEFT at [facility] TISSUE DENSITY: There are scattered areas of fibroglandular density. FINDINGS: Additional views of the left breast demonstrate a persistentoval mass with partially-obscured borders in the upper outer quadrant with a fewpunctate calcifications. Targeted ultrasound will be performed for furtherevaluation. There is no evidence of architectural distortion in the left breast IMPRESSION: Incomplete: Need additional imaging evaluation ([id number]) ASSESSMENT TEXT: RECOMMENDATION: Additional Imaging Breast Ultrasound Left No additional recommendation No additional laterality COMMENTS: Targeted ultrasound will be performed same day and will bereported separately. us Diego Gutierrez MD IM MAMMOGRAPHY ORDERABLES Fin al Result * COLONOSCOPY (02/16/2024 12:00 PM EST) Anatomical Region Laterality Modality Endoscopy Narrative 02/16/2024 12:03 PM EST Table formatting from the original result was not included. Findings Ten or more sessile and adenomatous-appearing polyps measuring 5-9 mm in the transverse colon; performed cold snare with complete en bloc removal and retrieved specimen One sessile and adenomatous-appearing polyp measuring 5-9 mm in the cecum; performed cold snare with complete en bloc removal and retrieved specimen Three sessile and adenomatous-appearing polyps measuring 5-9 mm in the descending colon; performed cold snare with complete en bloc removal and retrieved specimen Recommendation Await pathology results - A total of 15 polyps removed - Repeat colonoscopy likely in 1 year Pre-Procedure Diagnosis / Indication Screening for colon cancer Post-Procedure Diagnosis Screening for colon cancer Staff Staff Role Audi [place] MD Performing Provider ALEXYS Hilario CRNA, RN Endoscopy Nurse Regina Velarde RN Hospice Director Medications See Anesthesia Record. Preprocedure A history and physical has been performed, and patient medication allergies have been reviewed. The patient's tolerance of previous anesthesia has been reviewed. The risks and benefits of the procedure and the sedation options and risks were discussed with the patient. All questions were answered and informed consent obtained. ASA 3 - Patient with severe systemic disease Details of the Procedure The patient underwent monitored anesthesia care, which was administered by an anesthesia professional. The patient's blood pressure, heart rate, level of consciousness, oxygen, respirations, ECG and ETCO2 were monitored throughout the procedure. A digital rectal exam was performed. The scope was introduced through the anus and advanced to the cecum. Retroflexion was performed in the rectum. Bowel prep was adequate. The patient's estimated blood loss was minimal (<5 mL). The procedure was not difficult. The patient tolerated the procedure well. There were no apparent adverse events. Patient provided education and educated on specific discharge instructions. Patient educated on medications given during the procedure and new medications for discharge. Patient verbalizes understanding of discharge education. Patient stable and awaiting transport for discharge. Events Procedure Events Event Event Time ENDO SCOPE IN TIME 02/16/2024 11:40 AM ENDO CECUM REACHED 02/16/2024 11:44 AM ENDO SCOPE OUT TIME 02/16/2024 11:59 AM Specimens ID Type Source Tests Collected by Time 1 : Transverse colon polyps x10 via cold snare Tissue Large Intestine, Transverse Colon PATHOLOGY TISSUE REQUEST Audi Angeles MD 02/16/2024 1144 2 : Cecal colon polyp via cold snare Tissue Large Intestine, Cecum PATHOLOGY TISSUE REQUEST Audi Angeles MD 02/16/2024 1145 3 : descending colon polyp via cold snare Tissue Large Intestine, Left/Descending Colon PATHOLOGY TISSUE REQUEST Audi Angeles MD 02/16/2024 1155 Anesthesia Event Time In Patient In - Proc. Room 11:34 AM Patient Out - Proc. Room 12:00 PM us Audi Angeles MD ENDOSCOPY PROCEDURE ORDERABL ES Final Result * DX BONE DENSITY AXIAL SKELETON (01/11/2023 8:06 AM EDT) Anatomical Region Laterality Modality Dexa Scan 01/11/2023 Impressions 01/14/2023 10:34 AM EDT Indication: The patient is a female age 65 or older who requires a bone density assessment. Study was performed on Horizon APEX 5. Bone Density: Region BMD T-score Z-score AP Spine (L1, L2) 0.933 -0.4 1.4 Femoral Neck (Left) 0.830 -0.2 1.5 Total Hip (Left) 0.928 -0.1 1.2 Femoral Neck (Right) 0.815 -0.3 1.3 Total Hip (Right) 1.002 0.5 1.8 1/3 Radius (Left) 0.692 0.0 1.8 World Health Organization criteria for BMD interpretation classify patients as: Normal (T-score at or above -1.0), Low Bone Density (T-score between -1.0 and -2.5), or Osteoporotic (T-score at or below -2.5). T Scores are reported in Postmenopausal women and in men age 50 and older. Z-scores are reported in females prior to menopause and in males younger than age 50. 10-year Fracture Risk: FRAX not reported because: All T-scores for Spine Total, Hip Total, Femoral Neck at or above -1.0 Clinical Information Provided by Patient: Has used or is currently using the following medications: Vitamin D, Diuretic, Thyroid medication Has had or currently has the following medical conditions: Vitamin D Insufficiency, Depression Patient maximum height was 67 Menopause Age: 56 Patient is POST Interpretation: Bone mineral density is in the normal range. A minimum of two years may be required between bone density studies due to inherent testing precision limitations. Intervals between BMD testing should be determined according to each patient's clinical status. The spine is limited by hypertrophic changes with associated vertebra deleted. Reported by: Nat Pugh PA-C, CCD on 01/11/2023 9:30:00 AM. Diego Gutierrez MD IMG DEXA ORDERABLES Final Resu lt * HEPATITIS C ANTIBODY - SCREENING (03/12/2017 8:34 AM EST) Pathologist [facility] Hep C Ab Negative Negative 03/13/2017 9:22 AM EST [facility] Blood VENOUS BLOOD / Unknown Venipuncture / Unknown 03/12/2017 8:34 AM EST 03/12/2017 8:34 AM EST Diego Gtuierrez MD HEMATOLOGY ORDERABLES Final Re sult [facility] Organization Address City/State/ZIP Co de Phone Number [facility] [address] [place] [phone] from Last 3 Months or Most Recently Relevant to Health Maintenance Insurance [place] Member Subscriber Plan / Payer (Ef fective 2021-Present) Name:Rosanna Keys Relation to Subscriber:Self Name:Rosanna Keys Payer ID:Not on file Group ID:Not on file Type:Not on file Address: [address] [place] Subscriber Plan / Payer (Ef fective 2021-Present) Name:Rosanna Keys Relation to Subscriber:Self Name:Rosanna Keys Payer ID:Not on file Group ID:Not on file Type:Not on file Address: [address] [place] Advance Directives For more information, please contact: [phone] * Full Code (Latest Code Status on File) Date Activated Date Inactivated Comments 06/11/2022 9:17 AM 06/14/2022 5:37 PM * Full Code Date Activated Date Inactivated Comments 07/06/2021 9:32 AM 07/08/2021 6:35 PM * Full Code Date Activated Date Inactivated Comments 02/05/2021 6:35 PM 02/07/2021 10:42 PM Care Teams Finisher Operator Relationship Specialty Start Date End Date Diego Gutierrez [place] [address] [place] [address] PCP - General 04/11/09 Maryjane Townsend MD [address] [facility] [place] [address] Radiation Oncologist Radiology-Radiation Oncology 04/24/24
--- OUTSIDE RECORDS SUMMARY | 2024-11-28 08:43 | XMS_ITS | Encounter Summary ---
Author Organization [place] [address] Care Team Providers Care Embroidery Worker Name Role Phone Diego Gutierrez MD Primary Care Provider [phone] Maryjane Townsend MD Unavailable [phone] Reason for Visit * Reason Onset Date Comments Results 11/23/2024 Schedule Appointment 11/23/2024 Encounter Details Date Type Department Care Team (Late st Contact Info) Description 11/23/2024 Telephone EDG [facility] VAS ATTN: Appointments in this department are performed at various locations in the community on our Cardiovascular mobile health unit. You can look online to verify your site or call [phone] [phone] Bea Jackson RN Results; Schedule Appointment Social History Tobacco Use Types Packs/Day Years [...] from your doctor or pharmacy? Never 03/09/2024 [facility] Utilities Answer Date Recorded In the past [...] relatives? Three times a week 03/09/2024 Attends Denominational Services Not on file 03/09 Active Member [...] Date Recorded PHQ-2 Total Score 0 03/09/2024 [facility] - Occupational [...] any time in the past 12 m [facility], were you homeless or living in a [...] Entry Date Author No 01/25/2024 7:58 AM EST Clifford Dias CCMA documented in this encounter Miscellaneous Notes * Telephone Encounter - Bea Jackson RN - 11/23/2024 1:38 PM EDT Discussed results and recs of LCS with pt, they verbalized understanding. Scheduled for fu CT. documented in this encounter Plan of Treatment Upcoming Encounters Date Type Department Care Team (Late st Contact Info) Description 01/02/2025 9:45 AM EDT Appointment [facility] [address] [place] [address] Maryjane Townsend MD [address] [facility] [place] [place] [address] 01/15/2025 8:30 AM EDT Appointment Eduardo VO [address] [facility] [place] [address] Josephine Hensley, BLUE [address] [facility] [place] [address] 01/29/2025 8:00 AM EST Office Visit [place] [address] Diego Gutierrez MD [address] [place] [address] 03/19/2025 11:00 AM EST Appointment [facility] [address] [place] [address] Diego Gutierrez MD [address] [place] [address] Audi Angeles MD [address] [place] [address] 03/26/2025 8:30 AM EST Appointment [place] [facility] [address] [place] [address] Josephine Hensley, BLUE [address] [facility] [place] [address] 03/26/2025 9:00 AM EST [facility]ment [facility] [place] [address] [facility] [address] [place] [address] Tavia Carranza PA-C [address] [facility] [place] [address] 05/15/2025 2:00 PM EST Appointment [facility] [place] [address] [place] [address] Diego Gutierrez MD [facility] [place] [address] documented as of this encounter Goals [...] Stay Tobacco Free Lifestyle No No Davis RMClifford documented as of this encounter Visit Diagnoses Not on filedocumented in this encounter Additional Health Concerns Assessment Noted Time A fall risk assessment has been complete d for the patient 01/25/2024 7:58 AM EST documented as of this encounter Care Teams Embroidery Worker Relationship Specialty Start Date End Date Diego Gutierrez MD [address] [place] [address] [place] [address] PCP - General 04/11/09 Maryjane Townsend MD [address] [place] [address] Radiation Oncologist Radiology-Radiation Oncology 04/24/24 documented as of this encounter
--- OUTSIDE RECORDS SUMMARY | 2024-11-28 08:43 | XMS_ITS ---
Author Organization [facility] [place] [facility] Address [address] [place] [address] Phone Care Team Providers Care Telephone Maintainer Name Role Phone Diego Gutierrez MD Primary Care Provider [phone] Maryjane Townsend MD Unavailable [phone] Active Problems Patient Care Coordination No te Formatting of this note migh t be different from the original. [facility] - Fidel Huang MD Interventional Pain Protocol: Adam report completed (EVERY 3 MONTHS) ( 12/24/20 ) Pharmacy: [id number] [place] [address] [address] [facility] - [phone] Problem Noted Date Diagnosed Date Implantable loop recorder present 05/03/2024 Overview (05/03/2024): BSI Lux ILR Syncope 05/03/2024 Carcinoma of upper-outer gisela drant of left breast in female, estrogen receptor positive 03/01/2024 Cancer Staging:Clinical stage from 03/20/2024:Stage IA(cT1c, cN0, cM0, G2, ER+, FL-, HER2-) - Signed by Timothy Rosas MD on 03/20/2024 Pathologic:Stage IA(pT1c, pN0(sn), cM0, G3, ER+, FL-, HER2-) - Unsigned Assessment & Plan (04/18/2024 [...] REFLEX; Future LIPID PANEL REFLEX Migraines Anemia Current Treatment and Therapy Plans No current plan information found. Past Treatment and Therapy Plans No past plan information found. 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 Care Team Surgeon Dr. Timothy Rosas Radiation Oncologist Dr. Maryjane Townsend Primary Care Physician Diego Gutierrez MD Cancer Diagnosis Information Diagnosis date 03/01/24 Diagnosis and Staging information Invasive Ductal Carcinoma, left breast Clinical Stage IA (cT1c, cN0, cM0, G2, ER+, FL-, HER2-) Pathologic: Stage IA (pT1c, pN0(sn), cM0, G3, ER+, FL-, HER2-) Tumor markers Breast: Estrogen Receptor positive (99%) Progesterone Receptor negative Her-2 negative Background Information/Additional Screening Recommendations Genetics testing Negative ([facility] CancerNext 39-gene panel) Tobacco use Former Smoker. Based on history, not recommended for LDCT lung cancer screening Treatment Summary Surgery 04/04/24 - Left breast segmentectomy with sentinel lymph node dissection Radiation therapy Adjuvant ultra hypofractionated external beam radiotherapy to a total dose of 36 Gy in 10 fractions; 26 Gy to the left breast +10 Gy seroma boost. Deep inspiration breath-hold (ESTEFANIA H) to limit radiation dose to heart. 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 John Rosas 03/20/2024 - Genetics Negative [facility] CancerNext Panel (39 Genes) 04/04/2024 Surgery A. [...] Stage IA (cT1c, cN0, cM0, G2, ER+, FL-, HER2-) Pathologic Stage IA (pT1c, pN0(sn), cM0, G3, ER+, FL-, HER2-) Breast Cancer Surveillance Recommendations Follow-up Recommendations Surgeon Visits Every 6 months x 2, then annually x 5 years Radiation Oncology Visits Every 6 months x 2, then annually x 5 years Imaging Diagnostic mammogram annually x 5 years then screening yearly. DEXA scan every 2 years while on an aromatase inhibitor. Last DEXA 01/11/23. General Health Continue follow-up with PCP and BLEND PLANT OPERATOR as directed Recommendations Self-care plan: What you can do to stay healthy after treatment for breast cancer Cancer treatments may increase your chance of developing other health problems years after you havecompleted treatment. The purpose of this self-care plan is to inform you about what steps you can take to maintain good health after cancer treatment, including coping with side effects of treatment,reducing the risk of cancer returning, and watching for signs of cancer returning or of a new cancer. Keep in mind that every person treated for breast cancer is different and that these recommendations are not intended to be a substitute for the advice of a doctor or other healthcare professional.Please use these recommendations to talk with your doctor and healthcare team about an appropriate follow up care plan for you. You should have a medical history and physical exam that is focused on detecting signs of cancer recurrence or of new cancers as directed by your physician. The frequency of these exams may vary depending on the stage of cancer and other risk factors. If you had breast cancer once, there is a chance that it may come back or spread to other parts of your body. This is important because most recurrent breast cancer is suspected or found by women themselves, and the majority of recurrences are detected between scheduled visits. After treatment, if you feel something isn???t right with your body,see your regular doctor, physician assistant pressman, or nurse practitioner. If what you are feeling is urgent, go to an Urgent Care or Medical Walk-in Clinic. Tell the medical provider you had cancer and show them a copy of your cancer treatment summary. Become aware of your personal breast health, this includes monthly self-breast exams. Signs and symptoms to report for potential local recurrence Change in size, shape or contour of the lumpectomy breast Nipple discharge that is clear or blood tinged New onset of breast pain A new lump Thickening or a lump in breast tissue or on the chest wall after a mastectomy Changes in the skin including dimpling, scaly appearance, rash, redness or discoloration on the breast or chest wall A lump or thickening in the underarm area Monitoring for potential regional or distant recurrence New lump or thickening in the area above the collarbone Chronic bone pain or tenderness in an area Chest pain with shortness of breath Chronic cough Persistent abdominal pain or abdominal swelling Headaches, dizziness, fainting or rapid changes in vision Increasing fatigue unrelated to treatments Inability to control urine or bowels Persistent nausea or loss of appetite Changes in weight, especially weight loss Potential late effects of treatment After surgery you may experience numbness, weakness, loss of the range of motion and/or swelling (lymphedema) in the affected arm After radiation therapy you may experience breast pain, fibrosis in the affected breast, or changesin the shape or size of the affected breast Aromatase inhibitors may cause increased risk of osteoporosis and bone fractures, hot flashes and arthralgia (pain in joints). LIFE AFTER CANCER TREATMENT Managing fatigue Fatigue is one of the most common complaints of cancer survivors. Here are some ideas to help you manage your fatigue. Plan your day. Be active at the time of day you feel most alert and energetic. Save you energy by planning how you do things. For example sit on a stool when you cook or wash dishes. Take short naps or rest breaks Try to go to sleep and wake up at the same time every day Do what you enjoy but try to focus on interests that don???t tire you out. Let others help you. Choose how to spend your energy. Think about joining a support group Emotional difficulties Cancer survivors often experience a variety of positive and negative emotions, including relief, a sense of gratitude to be alive, fear of recurrence, anger, guilt, depression, anxiety, and isolation. Cancer survivors, caregivers, family, and friends may also experience post-traumatic stress disorder, an anxiety disorder that may develop after experiencing an extremely frightening or life-threatening situation. Each person???s post-treatment experience is different. For example, some survivors struggle with negative emotional effects of the cancer while others say that they have a renewed, positive outlook on life because of the cancer. Talk with a healthcare provider about your concerns Think about joining a support group Regular physical exercise Sexuality after breast cancer Breast cancer has changed many things in your life. One of the potential changes may be in the areaof your return to normal sexual function. Breast cancer and its treatment may alter the way you feel about your body, threatening your sense of femininity. Some women may have concerns about their sexual attractiveness to their partner. These feelings are normal. It is important to include your part ner when viewing the incisional area even though it may be a difficult time. Remember, you are still the same loving person your partner selected and surgery did not change that. During treatment you may have experienced fatigue and side effects from treatments that may have affected sexual functioning. These are normal interruptions that will resolve after treatments end. Resolved Problems Problem Noted Date Diagnosed Date Resolved Date Brain atrophy 12/17/2022 12/17/2022 Syncope 06/12/2022 01/25/2024 Hypertensive urgency 07/06/2021 023 Overview (07/10/2021): On losartan Recommend clonidine PRN Suspect stress is a contributing factor Mild carotid disease Normal stress/echo and lung ct. Bronchitis 05/07/2021 01/25/2024 Shortness of breath 05/05/2021 01/22/20 Assessment & Plan (05/05/2021 12:12 PM EST): [...]
--- OUTSIDE RECORDS SUMMARY | 2024-11-28 08:43 | XMS_ITS | Encounter Summary ---
Author Organization [place] [address] Care Team Providers Care Sephora Operations Consultant Name Role Phone Julio C Gutierrez MD Primary Care Provider [phone] Rossana Barbosa RN Unavailable [phone] Maryjane Townsend MD Unavailable [phone] Encounter Details Date Type Department Care Team (Late st Contact Info) Description 02/28/2024 Orders Only [facility] [address] [place] [id number] Kimberly Navarro MD [address] [facility] [address] [place] [address] Social History Tobacco Use Types Packs/Day Years Used Date Smoking Tobacco: Every Day Cigarettes 1.5 34.4 Started: 10/21/1971; Last attempted to quit: 03/03/2006 Smokeless Tobacco: Never Alcohol Use Standard Drinks/Week Comments No 0 (1 standard drink = 0.6 oz pur e alcohol) Overall Financial Resource Strain (CARDIA) Answe r Date Recorded How hard is it for you to pa y for the very basics like food, housing, medical care, and heating? Not very hard 06/16/2022 PHQ-2 Answer Date Recorded PHQ-2 Total Score 0 01/25/2024 [facility] [place] of Occupat ional Health - Occupational Stress Questionnaire Answer Date Recorded Do you feel stress - tense, restless, nervous, or anxious, or unable to sleep at night because your mind is troubled all the time - these days? Not at all 06/16/2022 Exercise Vital Sign Answer Date Recorde d On average, how many days pe r week do you engage in moderate to strenuous exercise (like a brisk walk)? 0 days 06/16/2022 On average, how many minutes do you engage in exercise at this level? 0 min 06/16/2022 Hunger Vital Sign Answer Date Recorded Within the past 12 months, y ou worried that your food would run out before you got the money to buy more. Never true 06/17/19 23 Within the past 12 months, t he food you bought just didn't last and you didn't have money to get more. Never true 06/16/2022 PRAPARE - Transportation Answer Date Re corded In the past 12 months, has l ack of transportation kept you from medical appointments or from getting medications? No 05/21 In the past 12 months, has l ack of transportation kept you from meetings, work, or from getting things needed for daily living? No 06/16/2022 Sexually Active Control Partners Comments Yes Post-menopausal [...] of Assessment Author No 01/25/2024 7:58 AM EST Arun Clifford LUPIS Cronin documented as of this encounter Mental Status * Because of a physical, mental or emotional condition, does this person have serious difficulty concentrating, remembering or making decisions? Answer Entry Date Author No 01/25/2024 7:58 AM EST Clifford Dias LUPIS Cronin documented in this encounter Plan of Treatment Upcoming Encounters Date Type Department Care Team (Late st Contact Info) Description 01/02/2025 9:45 AM EDT Appointment [facility] [address] [place] [address] Maryjane Townsend MD 1 [facility] [place] [address] 01/15/2025 8:30 AM EDT Appointment Eduardo VO [facility] [place] [address] Josephine Hensley, BLUE [address] [place] [address] [place] [address] 01/29/2025 8:00 AM EST Office Visit [place] [address] Julio C Gutierrez MD [address] [place] [address] 03/19/2025 11:00 AM EST Appointment [facility] [address] [place] [address] Julio C Gutierrez MD [address] [place] [address] Audi Angeles MD [address] [place] [address] 03/26/2025 8:30 AM EST Appointment Eduardo Mammography [facility] [place] [address] Josephine Hensley, GLASS RIBBON MACHINE OPERATOR ASSISTANT [address] [place] [address] [place] [address] 03/26/2025 9:00 AM EST Appointment [facility] Women's Wellness [place] [facility] [place] [address] Tavia Carranza PA-C [address] [facility] [address] JACKIE [facility] [place] [address] 05/15/2025 2:00 PM EST Appointment [place] [address] [place] [address] Julio C Gutierrez MD [address] [place] [address] documented as of this encounter Goals Goal Patient Goal Type Associated Problems Recent Progress Patient-Stated? Author Blood Pressure < 140/90 Blood Pressure 128/83(2024 8:19 AM EDT) No Eloisa Blanco APRN Maintain a healthy diet, exercise regularly and maintain an ideal body weight General No No Davis, RMA Stay Tobacco Free Lifestyle No No Davis RMClifford documented as of this encounter Procedures Procedure Name Priority Date/Time Associated Diagnosis Comments NEOGENOMICS BREAST PANEL (3 STAIN) Routine 02/28/2024 8:14 AM EST documented in this encounter Results * NEOGENOMICS BREAST PANEL (3 STAIN) (02/28/2024 8:14 AM EST) 02/28/2024 8:14 AM EST Narrative [facility] - 03/04/2024 7:27 PM EST Requesting Provider: JULIO C Nickerson Specimen = [id number] us Kimberly Navarro MD PATHOLOGY ORDERABLES Final Re sult [facility] 1 [place] [address] documented in this encounter Visit Diagnoses Not on filedocumented in this encounter Additional Health Concerns Assessment Noted Time A fall risk assessment has been complete d for the patient 01/25/2024 7:58 AM EST documented as of this encounter Care Teams Sephora Operations Consultant Relationship Specialty Start Date End Date Julio C Gutierrez MD [address] [facility] [address] [place], [place] [phone] PCP - General 04/11/09 Rossana Barbosa, RN Oncology Nurse Navigator 03/01/2406/21 Maryjane Townsend MD [address] [place] [address] [place] [address] Radiation Oncologist Radiology-Radiation Oncology 04/24/24 documented as of this encounter
--- OUTSIDE RECORDS SUMMARY | 2024-11-28 08:43 | XMS_ITS | Encounter Summary ---
Author Organization [place] [address] Care Team Providers Care Diesel Dragline Operator Name Role Phone Diego Gutierrez MD Primary Care Provider [phone] Maryjane Townsend MD Unavailable [phone] Reason for Visit * Reason Onset Date Comments Colonoscopy 11/21/2024 Encounter Details Date Type Department Care Team (Late st Contact Info) Description 11/21/2024 Telephone [facility] [address] ENTR[address], 3RD [place] [address] Lidia Weinstein, [facility] Colonoscopy Social History Tobacco Use Types Packs/Day Years [...] from your doctor or pharmacy? Never 03/09/2024 [facility] Utilities Answer Date Recorded In the [...] relatives? Three times a week 03/09/2024 Attends Mosque Services Not on file 03/09 Active Member [...] Date Recorded PHQ-2 Total Score 0 03/09/2024 [facility] [place] of Occupat ional Health - Occupational Stress [...] any time in the past 12 m [facility], were you homeless or living in a residential (including now)? No 03/09/2024 Sexually Active Control [...] Clifford Edgar CCMA documented in this encounter Miscellaneous Notes * Telephone Encounter - CorinnaLidia huizar RMA - 11/21/2024 9:48 AM EDT Pt is scheduled for her Colonoscopy with AK on 03-19-25 at 11:00 am at [facility]. Meds are the same since last Clinical note. Sent the pt her Colyte Split prep instructions to her my chart. documented in this encounter Plan of Treatment Upcoming Encounters Date Type Department Care Team (Late st Contact Info) Description 01/02/2025 9:45 AM EDT Appointment [facility] [address] [place] [address] Maryjane Townsend MD [address] [place] [address] [place] [address] 01/15/2025 8:30 AM EDT Appointment Eduardo VO [facility] [place] [address] Josephine Hensley, BLUE [address] [place] [address] [place] [address] 01/29/2025 8:00 AM EST Office Visit [place] [address] Diego Gutierrez MD [address] [place] [address] 03/19/2025 11:00 AM EST Appointment [facility] [address] [place] [address] Diego Gutierrez MD [address] [place] [address] Audi Angeles MD [address] [place] [address] 03/26/2025 8:30 AM EST Appointment Eduardo [facility] [place] [address] Josephine Hensley, BLUE 1 [facility] [place] [phone] 03/26/2025 9:00 AM EST Appointment [facility] Women's Wellness [place] One [facility] [address] [place] [address] Tavia Carranza PA-C 20 [facility] [place] [address] 05/15/2025 2:00 PM EST Appointment [place] [address] [place] [address] Diego Gutierrez MD COUNTRY [facility] [place] [phone] documented as of this [...] Davis RMA documented as of this encounter Visit Diagnoses Not on filedocumented in this encounter Additional Health Concerns Assessment Noted Time A fall risk assessment has been complete d for the patient 01/25/2024 7:58 AM EST documented as of this encounter Care Teams Diesel Dragline Operator Relationship Specialty Start Date End Date Diego Gutierrez MD [address] [place] [address] [place] [phone] PCP - General 04/11/09 Maryjane Townsend MD 1 [facility] [place] [address] Radiation Oncologist Radiology-Radiation Oncology 04/24/24 documented as of this encounter
--- OUTSIDE RECORDS SUMMARY | 2024-11-28 08:43 | XMS_ITS | Encounter Summary ---
Author Organization [place] [address] Care Team Providers Care Marketing Information Coordinator Name Role Phone Julio C Gutierrez MD Primary Care Provider [phone] Rossana Barbosa RN Unavailable [phone] Maryjane Townsend MD Unavailable [phone] Encounter Details Date Type Department Care Team (Late st Contact Info) Description 02/28/2024 Orders Only [facility] [address] [place] [id number] Kimberly Navarro MD [address] [facility] [address] [place] [address] Social History Tobacco Use Types Packs/Day Years [...] Date Recorded PHQ-2 Total Score 0 01/25/2024 [facility] [place] of Occupat ional Health - Occupational Stress [...] RADIATION [address] [place] [address] Maryjane Townsend MD 1 [facility] [place] [address] 01/15/2025 8:30 AM EDT Appointment Eduardo [place] [facility] [place] [address] Josephine Hensley, BLUE [address] [place] [address] [place] [address] 01/29/2025 8:00 AM EST Office Visit [place] [address] Julio C Gutierrez MD [address] [place] [address] 03/19/2025 11:00 AM EST Appointment [facility] [address] [place] [address] Julio C Gutierrez MD [address] [place] [address] Audi Angeles MD [address] [place] [address] 03/26/2025 8:30 AM EST Appointment Eduardo Mammography [facility] [place] [address] Josephine Hensley, PAPER HANGER [address] [place] [address] [place] [phone] 03/26/2025 9:00 AM EST Appointment [facility] Women's Wellness [place] [facility] [place] [address] Tavia Carranza PA-C [address] [facility] [place] [address] 05/15/2025 2:00 PM EST Appointment [place] [address] [place] [address] Julio C Gutierrez MD [address] [place] [address] documented as of this encounter Goals [...] Name Priority Date/Time Associated Diagnosis Comments NEOGENOMICS HER2 BREAST Routine 02/28/2024 8:14 AM EST documented in this encounter Results * NEOGENOMICS HER2 BREAST (02/28/2024 8:14 AM EST) 02/28/2024 8:14 AM EST Narrative [facility] - 03/10/2024 6:28 AM EST Requesting Provider: JULIO C Nickerson Specimen = [id number] us Kimberly Navarro MD PATHOLOGY ORDERABLES Final Re sult [facility] 1 [place] [address] documented in this encounter Visit Diagnoses Not on filedocumented in this encounter Additional Health Concerns Assessment Noted Time A fall risk assessment has been complete d for the patient 01/25/2024 7:58 AM EST documented as of this encounter Care Teams Marketing Information Coordinator Relationship Specialty Start Date End Date Julio C Gutierrez MD [address] [facility] [place] [phone] PCP - General 04/11/09 Rossana Barbosa, RN Oncology Nurse Navigator 03/01/2406/21 Maryjane Townsend MD 1 [facility] [place] [address] Radiation Oncologist Radiology-Radiation Oncology 04/24/24 documented as of this encounter
--- OUTSIDE RECORDS SUMMARY | 2024-11-28 08:43 | XMS_ITS | Clinical Summary ---
Author Organization [facility] Address [address] [place] [phone] Phone Care Team Providers Care Field Sales Engineer Name Role Phone Unavailable Unavailable Conditions or Problems No information available. Medications No information available. Medications Administered No information available. Allergies, Adverse Reactions, Alerts No information available. Results No information available. Plan of Care No information available. Procedures No information available. Vital Signs No information available. Immunizations No information available. Advance Directives No information available.
--- OUTSIDE RECORDS SUMMARY | 2024-11-28 08:43 | XMS_ITS | Encounter Summary ---
Author Organization [place] [address] Care Team Providers Care Fiberglass Roller Name Role Phone Diego Gutierrez MD Primary Care Provider Maryjane Townsend MD Unavailable [phone] Reason for Referral * MRI/CAT Scan (Routine) - Pending Review Specialty Diagnoses / Procedures Referred By Geetha bhardwaj Referred To Contact Radiology Diagnoses Lung nodule Procedures CT FABIAN LUNG CANCER SCREENING FOLLOW UP Diego [place] [address] [place] [address] Phone: tel: fax: Referral ID Status Reason Start Date Expiration Date V isits Requested Visits Authorized [id number] Pending Review 11/17/2024 11/17/2025 1 1 Encounter Details Date Type Department Care Team (Late st Contact Info) Description 11/17/2024 Orders Only SEP [place] M[place]INE[place] [address] Diego Gutierrez MD [address] [facility] [place] [phone] Lung nodule (Primary Dx) Social History Tobacco Use Types Packs/Day Years [...] from your doctor or pharmacy? Never 03/09/2024 [facility] Utilities Answer Date Recorded In the [...] relatives? Three times a week 03/09/2024 Attends Zoroastrian Services Not on file 03/09 Active Member [...] Date Recorded PHQ-2 Total Score 0 03/09/2024 [facility] [place] of Occupat ional Health - Occupational Stress [...] any time in the past 12 m [facility], were you homeless or living in a chcf (including now)? No 03/09/2024 Sexually Active Control [...] of Assessment Author No 01/25/2024 7:58 AM Wilson Edgar CCMA * Is the person blind or does he/she have serious difficulty seeing even when wearing glasses? Answer Date of Assessment Author No 01/25/2024 7:58 AM Wilson Edgar CCMA * Does this person have serious difficulty walking or climbing stairs? Answer Date of Assessment Author No 01/25/2024 7:58 AM Wilson Edgar CCMA * Does this person have difficulty dressing or bathing? Answer Date of Assessment Author No 01/25/2024 7:58 AM EST Arun Wilson [email or web address] Murillo CCMWilson * Because of a physical, mental or emotional condition, does this person have difficulty doing errands alone such as visiting a doctor's office or shopping? Answer Date of Assessment Author No 01/25/2024 7:58 AM EST ArunWilson LUPIS Cronin documented as of this encounter Mental Status * Because of a physical, mental or emotional condition, does this person have serious difficulty concentrating, remembering or making decisions? Answer Entry Date Author No 01/25/2024 7:58 AM EST Arun Wilson LUPIS Cronin documented in this encounter Plan of Treatment Upcoming Encounters Date Type Department Care Team (Late st Contact Info) Description 01/02/2025 9:45 AM EDT Appointment [facility] [address] [place] [address] Maryjane Townsend MD 1 [facility] [place] [address] 01/15/2025 8:30 AM EDT Appointment Eduardo VO [facility] [place] [address] Josephine Hensley, BLUE [address] [facility] [place] [address] 01/29/2025 8:00 AM EST Office Visit OTILIO MARTINEZ [place] [address] Diego Gutierrez MD [address] [place] [phone] 03/19/2025 11:00 AM EST Appointment [facility] [address] [place] [address] Diego Gutierrez MD [address] [place] [address] Audi Angeles MD [address] [place] [address] 03/26/2025 8:30 AM EST [facility]ointment [place] [address] Josephine Hensley, BLUE [address] [facility] [address] [place] [phone] 03/26/2025 9:00 AM EST Appointment [facility] Women's Wellness [place] [address] Tavia Carranza PA-C [address] [facility] [address] [place] [address] 05/15/2025 2:00 PM EST Appointment [place] [address] [place] [address] Diego Gutierrez MD [address] [facility] [place] [address] Scheduled Orders Name Type Priority Associated Diagnoses Orde r Schedule CT FABIAN LUNG CANCER SCREENING FOLLOW UP Imaging Routine Lung nodule Expected: 05/19/2025, Expires: 02/17/2026 documented as of this encounter Goals Goal [...] documented as of this encounter Visit Diagnoses Diagnosis Lung nodule- Primary Solitary pulmonary nodule documented in this encounter Additional Health Concerns Assessment Noted Time A fall risk assessment has been complete d for the patient 01/25/2024 7:58 AM EST documented as of this encounter Care Teams Fiberglass Roller Relationship Specialty Start Date End Date Diego Gutierrez MD [address] [place] [address] [place] [address] PCP - General 04/11/09 Maryjane Townsend MD [address] [place] [address] CANCER CARE [place], [place] [id number] Radiation Oncologist Radiology-Radiation Oncology 04/24/24 documented as of this encounter
--- OUTSIDE RECORDS SUMMARY | 2024-11-28 08:44 | XMS_ITS | Encounter Summary ---
Author Organization [place] [address] Care Team Providers Care System Specialist Name Role Phone Diego Gutierrez MD Primary Care Provider [phone] Maryjane Townsend MD Unavailable [phone] Reason for Visit * Reason Comments Oncology Nurse Navigation Outreach Encounter Details Date Type Department Care Team (Late st Contact Info) Description 07/19/2024 Patient Outreach [place] [address] Ivy Phillip, RN Oncology Nurse Navigation (Outreach) Social History Tobacco Use Types Packs/Day Years Used Date Smoking Tobacco: Former Cigarettes 1.5 34.4 0 10/21/1971 - 03/03/2006 Smokeless Tobacco: Never Alcohol Use Standard Drinks/Week Comments No 0 (1 standard drink = 0.6 oz pur e alcohol) B1300 Health Literacy Answer Date Recor ded How often do you need to hav e someone help you when you read instructions, pamphlets, or other written material from your doctor or pharmacy? Never 03/09/2024 [facility] Utilities Answer Date Recorded In the [...] relatives? Three times a week 03/09/2024 Attends Sabianism Services Not on file 03/09 Active Member of Clubs or Organizations Not on f ile 03/09/2024 Attends Club or Organization Meetings Not on arbaella e 03/09/2024 Are you , , di [...] Recorded PHQ-2 Total Score 0 03/09/2024 [facility] of Occupat ional Health - Occupational Stress [...] any time in the past 12 m [facility], were you homeless or living [...] Clifford Edgar CCMA documented in this encounter Progress Notes * Ivy Phillip RN - 07/19/2024 1:03 PM EDT Navigation Assessment Chief complaint: Chief Complaint Patient presents with Oncology Nurse Navigation Outreach Current Status: Closed Diagnosis: Breast Visit Type: Telephone - outgoing;MyChart (Onc NN tried reaching out via phone call, pt did not answer. Will reach out via [employer] message and close.) Reason: Exit Interview Follow-up Plan Rad/Onc;Survivorship Dr. Townsend 01/02, Survivorship 10/19 Exit interview completed via [employer] message . No barriers or care coordination needs noted at thistime. Patient has Onc NN contact information. Onc NN remains available to patient and providers as needed. documented in this encounter Plan of Treatment Upcoming Encounters Date Type Department Care Team (Late st Contact Info) Description 01/02/2025 9:45 AM EDT Appointment [facility] [address] [place] [address] Maryjane Townsend MD 1 [facility] [place] [address] 01/15/2025 8:30 AM EDT Appointment Eduardo VO One [facility] [place] [address] Josephine Hensley, BLUE [address] [place] [address] [place] [phone] 01/29/2025 8:00 AM EST Office Visit OTILIO [place]ARTINE[place] [phone] Diego Gutierrez MD [address] [place] [phone] 03/19/2025 11:00 AM EST Appointment [facility] [address] [place] [address] Diego Gutierrez MD [address] [place] [phone] Audi Angeles MD [address] [place] [address] 03/26/2025 8:30 AM EST Appointment [place] [facility]amm[facility] [place] [address] Josephine Hensley, BLUE [address] [facility] [address] [place] [phone] 03/26/2025 9:00 AM EST Appointment [facility] Women's Wellness [facility] [place] [address] Tavia Carranza PA-C [address] [facility] [address] [place] [address] 05/15/2025 2:00 PM EST Appointment [place] [address] [facility] [place] [address] Diego Gutierrez MD [address] [facility] [place] [phone] documented as of this encounter Goals [...] documented as of this encounter Care Teams System Specialist Relationship Specialty Start Date End Date Diego Gutierrez MD COUNTRY [facility] [place] [phone] PCP - General 04/11/09 Maryjane Townsend MD [address] [place] [address] [place] [address] Radiation Oncologist Radiology-Radiation Oncology 04/24/24 documented as of this encounter
--- OUTSIDE RECORDS SUMMARY | 2024-11-28 08:45 | XMS_ITS | Encounter Summary ---
Author [place] [address] Care Team Providers Care Business Management Associate Name Role Phone Diego Gutierrez MD Primary Care Provider [phone] Maryjane Townsend MD Unavailable [phone] Reason for Visit * Reason Onset Date Comments Appointment Needed 10/24/2024 Encounter Details Date Type Department Care Team (Late st Contact Info) Description 10/24/2024 Telephone [facility] Women's [facility] [address] [place] [id number] Naomi Amador, Clerical Staff Appointment Needed Social History Tobacco Use Types Packs/Day Years [...] from your doctor or pharmacy? Never 03/09/2024 [facility] Utilities Answer Date Recorded In the [...] relatives? Three times a week 03/09/2024 Attends Restorationism Services Not on file 03/09 Active Member [...] Date Recorded PHQ-2 Total Score 0 03/09/2024 [facility] [place] of Occupat ional Health - Occupational Stress [...] any time in the past 12 m [facility], were you homeless or living in [...] Assessment Author No 01/25/2024 7:58 AM Clifford Edgra CCMA documented as of this encounter Mental Status * Because of a physical, mental or emotional condition, does this person have serious difficulty concentrating, remembering or making decisions? Answer Entry Date Author No 01/25/2024 7:58 AM Clifford Edgar CCMA documented in this encounter Miscellaneous Notes * Telephone Encounter - Naomi Amador, Clerical Staff - 10/24/2024 8:36 AM EDT Scheduled at appt * Telephone Encounter - Naomi Amador Clerical Staff - 10/24/2024 8:35 AM EDT ----- Message from Nurse Tracey sent at 10/24/2024 8:22 AM EDT ----- Provider: Dr. Rosas or [facility]-- Follow up: March? no-- Reason/Hx: Lt IDC +,-,-, radiation, arimidex-- Imaging: tracy dx mm prior-- DEXA needed yes- last dexa 01/11/23 so please schedule for December here-- Ordered yes-- Fall risk no-- Preferred time: any -- Will check My chart: please schedule now -- documented in this encounter Plan of Treatment Upcoming Encounters Date Type Department Care Team (Late st Contact Info) Description 01/02/2025 9:45 AM EDT Appointment [facility] [address] [facility] [address] [place] [address] Maryjane Townsend MD [address] [facility] [place] [address] 01/15/2025 8:30 AM EDT Appointment Eduardo VO One [facility] [place] [address] Josephine Hensley NP [address] [facility] [place] [address] 01/29/2025 8:00 AM EST Office Visit [facility] [place] [facility] [address] [place] [address] Diego Gutierrez MD [address] [place] [address] 03/19/2025 11:00 AM EST Appointment [facility] [address] [place] [address] Diego Gutierrez MD [address] [facility] [address] [place] [address] Audi Angeles MD [address] [place] [address] 03/26/2025 8:30 AM EST Appointment [facility] [place] [address] Josephine Hensley, BLUE [address] [facility] [place] [address] 03/26/2025 9:00 AM EST Appointment [facility] Women's Wellness [facility] [place] [address] Tavia Carranza PA-C [address] [facility] [address] [place], [place] [id number] 05/15/2025 2:00 PM EST Appointment [place] [address] [facility] [place] [address] Diego Gutierrez MD [address] [place] [address] documented as of this encounter Goals [...] maintain an ideal body weight General No SusanNo haq RMA Stay Tobacco Free Lifestyle No No Davis RMA documented as of this encounter Visit Diagnoses Not on filedocumented in this encounter Additional Health Concerns Assessment Noted Time A fall risk assessment has been complete d for the patient 01/25/2024 7:58 AM EST documented as of this encounter Care Teams Business Management Associate Relationship Specialty Start Date End Date Diego Gutierrez MD [address] [place] [id number] PCP - General 04/11/09 Maryjane Townsend MD 1 [facility] [place] [address] Radiation Oncologist Radiology-Radiation Oncology 04/24/24 documented as of this encounter
--- OUTSIDE RECORDS SUMMARY | 2024-11-28 08:45 | XMS_ITS | Encounter Summary ---
Author Organization [place] [address] Care Team Providers Care Agriculture Professor Name Role Phone Diego Gutierrez MD Primary Care Provider [phone] Maryjane Townsend MD Unavailable [phone] Reason for Referral * Surgical (Routine) - Pending Review Specialty Diagnoses / Procedures Referred By Geetha bhardwaj Referred To Contact Gastroenterology Diagnoses Encounter for colonoscopy due to history of colonic polyp Procedures COLONOSCOPY AR COLORECTAL SCRN; HI RISK IND AR COLONOSCOPY FLX W/ENDOSCOPIC MUCOSAL RESECTION Diego [place] [address] Phone: tel: fax: Referral ID Status Reason Start Date Expiration Date V isits Requested Visits Authorized [id number] Pending Review 11/21/2024 11/21/2025 1 1 * GI Procedure (Routine) - Pending Review Specialty Diagnoses / Procedures Referred By Geetha bhardwaj Referred To Contact General Surgery Diagnoses Special screening for malignant neoplasms, colon Screening for malignant neoplasm of the rectum Diego [place] [address] Phone: tel: fax: [facility] [address] [place] [address] Phone: tel: fax: Referral ID Status Reason Start Date Expiration Date V isits Requested Visits Authorized [id number] Pending Review 11/15/2024 11/15/2025 1 1 Reason for Visit * Reason Onset Date Comments Central Order Completion Outreach 11/09/2024 LDCT Encounter Details Date Type Department Care Team (Late st Contact Info) Description 11/09/2024 Patient Outreach [facility] [address] [place] [address] Diego Gutierrez MD [address] [place] [address] Central Order Completion Outreach (LDCT) Social History Tobacco Use Types Packs/Day Years [...] from your doctor or pharmacy? Never 03/09/2024 [facility] Utilities Answer Date Recorded In the past 12 months has e Divv[employer], gas, oil, or water [employer]ogi[employer] threatened to shut off services in your home? No 03/09/2024 Social Connection and Isolat ion Panel [NHANES] Answer Date Recorded In a typical week, how many times do you talk on the phone with family, friends, or neighbors? More than three times a week 03/09/2024 How often do you get togethe r with friends or relatives? Three times a week 03/09/2024 Attends Alevism Services Not on file 03/09 Active Member [...] Date Recorded PHQ-2 Total Score 0 03/09/2024 [facility] of Occupat ional [facility] - Occupational Stress Questionnaire Answer Date [...] time in the past 12 m [facility], were you homeless or living in a [...] Clifford Edgar CCMA documented in this encounter Ordered Prescriptions Prescription Sig Dispense Quantity Refills Last Filled Start Date End Date polyethylene glycol (GOLYTELY) 236-22.74-6.74 -5.86 gram Oral Recon SolnIndications:Enc ounter for colonoscopy due to history of colonic polyp Take 4,000 mL by mouth once for 1 dose. 4000 mL 11/21/2024 11/21/2024 documented in this encounter Progress Notes * Stephanie Clarke RN - 11/15/2024 3:45 PM EDT SEP Order Completion Outcome Tracking Contact Attempt:: Final LDCT Outcome:: Screening Scheduled (11/16/2024 [facility]) DEXA Outcome:: Scheduled Prior to Call (01/15/2025) During Order Completion Outreach, care gaps addressed are Annual Wellness Visit and Colorectal Cancer Screening. Annual Wellness Visit Scheduled 01/29/2025 and Referral to appropriate department placed and message routed to for scheduling. Call back number: [phone] Colonoscopy Screening: Has the patient ever had a colonoscopy? yesIf so when and where: 02/16/2024 Dr Angeles If the patient has been seen for an office visit or scope within the last 3 years the procedures should be scheduled with that same provider. Is the patient on O2? no Is patient on a blood thinner? noIf so who manages: Has the patient had a heart attack in the last 6 months or stroke in the last 12 months? no Does the patient have a mechanical heart valve?no Is the patient greater than 75 years old?no * Margi Fletcher RN - 11/09/2024 3:10 PM EDT SEP Order Completion Outcome Tracking Contact Attempt:: First LDCT Outcome:: Left Voicemail to Return Call at [phone], MyChart Message DEXA Outcome:: Scheduled Prior to Call (01/15/2025-[facility]) documented in this encounter Miscellaneous Notes * Telephone Encounter - Stacy Batres RMA - 11/21/2024 9:47 AM EDT Pt is scheduled for her Colonoscopy with AK on 03-19-25 at 11:00 am at [facility]. * Addendum Note - Stacy Batres RMA - 11/21/2024 9:47 AM EDTAddended by: STACY BATRES on: 11/21/2024 09:47 AM Modules accepted: Orders * Telephone Encounter - Stacy Batres RMA - 11/15/2024 4:09 PM EDT Will call when we have Feb schedule. Due 02-15-25 with AK. 1 year f/u Hx of colon polyps. * Addendum Note - Stephanie Clarke RN - 11/15/2024 3:52 PM EDTAddended by: STEPHANIE CLARKE on: 11/15/2024 03:52 PM Modules accepted: Orders documented in this encounter Plan of Treatment Upcoming Encounters Date Type Department Care Team (Late st Contact Info) Description 01/02/2025 9:45 AM EDT Appointment [facility] [address] [place] [address] Maryjane Townsend MD 1 [facility] [place] [address] 01/15/2025 8:30 AM EDT Appointment Eduardo VO One [facility] [place] [address] Josephine Hensley, BLUE [address] [place] [address] [place] [address] 01/29/2025 8:00 AM EST Office Visit [facility] [address] [place] [address] Diego Gutierrez MD [address] [place] [address] 03/19/2025 11:00 AM EST Appointment [facility] [address] [place] [address] [place] [address] Diego Gutierrez MD [address] [facility] [place] [address] Audi Angeles MD [address] [facility] [place] [address] 03/26/2025 8:30 AM EST Appointment [facility] [place] [address] Josephine Hensley, BLUE [address] [facility] [place] [address] 03/26/2025 9:00 AM EST Appointment [facility] Women's Wellness [facility] [place] [address] Tavia Carranza PA-C [address] [facility] [address] [place] [address] 05/15/2025 2:00 PM EST Appointment [place] [address] [place] [address] Diego Gutierrez MD [address] [facility] [address] [place] [address] Scheduled Orders Name Type Priority Associated Diagnoses Orde r Schedule COLONOSCOPY Endoscopy Routine Encounter for colonoscopy due to history of colonic polyp 1 Occurrences starting 11/21/2024 until 11/21/2025 Scheduled Referrals Name Type Priority Associated Diagnoses Order Schedule SCREENING COLONOSCOPY Outpatient Referral Routine Special screening for malignant neoplasms, colon Screening for malignant neoplasm of the rectum Ordered: 11/15/2024 documented as of this encounter Goals Goal [...] maintain an ideal body weight General No Marva Davisdakota [place] Stay Tobacco Free Lifestyle No Rivera RMA documented as of this encounter Visit Diagnoses Diagnosis Encounter for colonoscopy due to history of colonic polyp- Primary Special screening for malignant neoplasms, colon Special screening for malignant neoplasms, colon Screening for malignant neoplasm of the rectum documented in this encounter Additional Health Concerns Assessment Noted Time A fall risk assessment has been complete d for the patient 01/25/2024 7:58 AM EST documented as of this encounter Care Teams Agriculture Professor Relationship Specialty Start Date End Date Diego Gutierrez MD [employer] [facility] [place] [address] PCP - General 04/11/09 Maryjane Townsend MD [address] [place] [address] [place] [address] Radiation Oncologist Radiology-Radiation Oncology 04/24/24 documented as of this encounter
--- OUTSIDE RECORDS SUMMARY | 2024-11-28 08:45 | XMS_ITS | Encounter Summary ---
Author [place] [address] Care Team Providers Care Silo Worker Name Role Phone Diego Gutierrez MD Primary Care Provider [phone] Maryjane Townsend MD Unavailable [phone] Reason for Visit * Reason Onset Date Comments Integrative Oncology Referral 10/25/2024 Encounter Details Date Type Department Care Team (Late st Contact Info) Description 10/25/2024 Telephone [facility] [place] [phone] Diana Parsons, Clerical Staff Integrative Oncology Referral Social History Tobacco Use Types Packs/Day Years [...] doctor or pharmacy? Never 03/09/2024 [facility] Utilities Answer Date Recorded In [...] relatives? Three times a week 03/09/2024 Attends Adventism Services Not on file 03/09 Active Member [...] Date Recorded PHQ-2 Total Score 0 03/09/2024 [facility] [place] of Occupat ional Health - Occupational Stress [...] any time in the past 12 m [facility], were you homeless or living in a usp (including now)? No 03/09/2024 Sexually Active Control [...] encounter Miscellaneous Notes * Telephone Encounter - Diana Parsons, Clerical Staff - 10/25/2024 11:11 AM EDT [employer]card [employer] message sent with Integrative Oncology information and newsletterMaria R Ortiz documented in this encounter Plan of Treatment Upcoming Encounters Date Type Department Care Team (Late st Contact Info) Description 01/02/2025 9:45 AM EDT Appointment [facility] [address] [place] [address] Maryjane Townsend MD 1 [facility] [place] [address] 01/15/2025 8:30 AM EDT Appointment Eduardo VO [facility] [place] [address] Josephine Hensley, BLUE [address] [place] [address] [place] [address] 01/29/2025 8:00 AM EST Office Visit [facility] [place] [address] Diego Gutierrez MD [address] [facility] [place] [address] 03/19/2025 11:00 AM EST Appointment [facility] [address] [facility] [place] [address] Diego Gutierrez MD [address] [facility] [facility] [place] [address] Audi Angeles MD [address] [place] [address] 03/26/2025 8:30 AM EST Appointment Eduardo [facility] [place] [address] Josephine Hensley, BLUE [address] [place] [address] [place] [address] 03/26/2025 9:00 AM EST Appointment [facility] Women's Wellness [place] [facility] [place] [address] Tavia Carranza PA-C [address] [facility] [address] [facility] [place] [address] 05/15/2025 2:00 PM EST Appointment [place] [address] [place] [address] Diego Gutierrez MD [address] [place] [address] [place] [address] documented as of this encounter Goals Goal Patient Goal Type Associated Problems Recent Progress Patient-Stated? Author Blood Pressure < 140/90 Blood Pressure 128/83(10/24 8:19 AM EDT) No Eloisa Blanco APRN Breast [facility] Breast Health On track(2024 1:35 PM EST) [...] documented as of this encounter Care Teams Silo Worker Relationship Specialty Start Date End Date Diego Gutierrez MD [address] [place] [address] [place] [address] PCP - General 04/11/09 Maryjane Townsend MD 1 [facility] [place] [address] Radiation Oncologist Radiology-Radiation Oncology 04/24/24 documented as of this encounter
--- OUTSIDE RECORDS SUMMARY | 2024-11-28 08:45 | XMS_ITS | Encounter Summary ---
Author [place] [address] Care Team Providers Care Director Of Social Media Marketing Name Role Phone Diego Gutierrez MD Primary Care Provider Maryjane Tonwsend MD Unavailable [phone] Reason for Visit * Reason Onset Date Comments Integrative Oncology Referral 11/15/2024 Encounter Details Date Type Department Care Team (Late st Contact Info) Description 11/15/2024 Telephone [facility] [place] [phone] Diana Parsons, Clerical Staff Integrative Oncology Referral [...] from your doctor or pharmacy? Never 03/09/2024 [facility] Utilities Answer Date Recorded In the [...] relatives? Three times a week 03/09/2024 Attends Mandaen Services Not on file 03/09 Active Member [...] Date Recorded PHQ-2 Total Score 0 03/09/2024 [facility] [place] of Occupat ional Health - Occupational Stress [...] any time in the past 12 m [facility], were you homeless or [...] Encounter - Diana Parsons, Clerical Staff - 11/15/2024 2:11 PM EDT LVM regarding IO referral. Diana documented in this encounter Plan of Treatment Upcoming Encounters Date Type Department Care Team (Late st Contact Info) Description 01/02/2025 9:45 AM EDT Appointment [facility] [address] [place] [address] Maryjane Townsend MD [address] [place] [address] [place] [address] 01/15/2025 8:30 AM EDT Appointment Eduardo [place] [address] Josephine Hensley, BLUE [address] [place] [address] [place] [address] 01/29/2025 8:00 AM EST Office Visit [facility] [place] [facility] [place] [address] Diego Gutierrez MD [address] [place] [address] 03/19/2025 11:00 AM EST Appointment [facility] [address] [place] [address] Diego Gutierrez MD [address] [place] [address] Audi Angeles MD [address] [place] [address] 03/26/2025 8:30 AM EST Appointment Eduardo Mammography [place] [address] Josephine Hensley, BLUE [address] [place] [address] [place] [address] 03/26/2025 9:00 AM EST Appointment [facility] Women's Wellness [place] [address] [place] [address] Tavia Carranza PA-C [address] [facility] [address] [place] [place], [place] [address] 05/15/2025 2:00 PM EST Appointment [place] [address] [place] [address] Diego Gutierrez MD [address] [place] [address] documented as of this encounter Goals [...] documented as of this encounter Care Teams Director Of Social Media Marketing Relationship Specialty Start Date End Date Diego Gutierrez MD [address] [place] [address] [place] [address] PCP - General 04/11/09 Maryjane Townsend MD 1 [facility] [place] [address] Radiation Oncologist Radiology-Radiation Oncology 04/24/24 documented as of this encounter
== END 2024-11-28 23:59 | disposition home or self-care (01) ==
LOC: RAD 08:34
PROVIDERS: PCP Pediatrics; Visit Provider Physician Assistant
DX: M17.12 Unilateral primary osteoarthritis, left knee (principal); W19.XXXA Unspecified fall, initial encounter
CPT/HCPCS: 73562